=== PATIENT | male | born 1930 | race Caucasian/White ===

== ENCOUNTER 2017-02-15 08:34 | Emergency (ER) | payer MEDICARE, BC ==
[~2017-02-15] VITALS: Ht 167.6 cm; Wt 61.2 kg
[2017-02-15] MEDS ORDERED: ASPI1TAB PO (08:41)
[2017-02-15] MEDS ORDERED: NS 500 ML IV ONE (09:45)
[2017-02-15] MEDS ORDERED: GASTROGRAFIN SOLUTION 30ML (Q9963) PO ONE ×2 (10:15→10:45)
[2017-02-15 10:19] LABS: BASO % 0.3 % (0.0-1.0); EOS # 0.2 K/mm3 (0.0-0.50); EOS % 1.8 % (0.0-3.0); LARGE UNSTAINED CELL # 0.2 K/mm3 (0.0-0.4); LARGE UNSTAINED CELL % 1.7 % (0.0-4.0); LYMPH # 0.9 K/mm3 (1.5-4.5); LYMPH % 8.4 % (24.0-44.0); MEAN CORPUSCULAR HEMOGLOBIN 32.5 pg (27.0-33.0); MEAN CORPUSCULAR HGB CONC 33.8 g/dl (32.0-36.5); MEAN CORPUSCULAR VOLUME 96.1 fl (80.0-96.0); MONO # 0.6 K/mm3 (0.0-0.8); MONO % 5.8 % (0.0-5.0); NEUTROPHILS # 7.7 K/mm3 (1.8-7.7); NEUTROPHILS % 81.9 % (36.0-66.0); PLATELET COUNT, AUTOMATED 249 k/mm3 (150-450); RED CELL DISTRIBUTION WIDTH 12.6 % (11.5-14.5); WHITE BLOOD COUNT 9.4 K/mm3 (4.0-10.0)
[2017-02-15 10:39] LABS: ALBUMIN 3.3 GM/DL (3.2-5.2); ALBUMIN/GLOBULIN RATIO 1.06 (1.00-1.93); BILIRUBIN,DIRECT 0.8 MG/DL (0.0-0.2); BILIRUBIN,TOTAL 1.2 MG/DL (0.2-1.0); CALCIUM LEVEL 10.3 MG/DL (8.8-10.2); CREATININE FOR GFR 1.38 MG/DL (0.70-1.30); GLOMERULAR FILTRATION RATE 51.8 (>35); POTASSIUM SERUM 4.7 MEQ/L (3.5-5.1); TOTAL PROTEIN 6.4 GM/DL (6.4-8.2)
[2017-02-15] MEDS ORDERED: ISOVUE-370 76% 100ML VIAL (Q9967) As Ordered ONE (11:37)
--- NOTE | 2017-02-15 12:11 | REP ---
Clinical: Abdominal mass. Technique: Axial contrast enhanced images from the lung bases to the pubic symphysis using oral and 100 ml Isovue 370 intravenous contrast material with coronal and sagittal re-formations. Comparison: PET-CT dated 06/12/2016. Findings: There is severe ascites throughout the abdomen and pelvis. There is a large soft tissue mass likely representing conglomerate adenopathy which appears to involve the central mesentery encasing the superior mesenteric artery and tributary branches which measures roughly 19 x 15 x 6 cm. No scattered adenopathy throughout the remainder of the abdomen and pelvis and retroperitoneum adjacent to the aorta is also appreciated suggesting lymphoma or extensive metastatic disease. Findings have considerably increased when compared to prior PET-CT. Liver, spleen, pancreas, gallbladder, bilateral adrenal glands and kidneys are relatively normal. Layering sludge within the gallbladder cannot be excluded. 2.4 cm left renal cyst and 2 mm nonobstructing right renal calculus identified. Pelvis demonstrates relatively normal bladder although mild wall thickening along the posterolateral right side of the bladder cannot be excluded. The prostate gland is normal for age. No free air. Atherosclerotic changes of the aorta and vasculature noted without aneurysm or dissection. The bowel pattern is normal. Musculoskeletal structures demonstrate degenerative changes although underlying osseous metastatic disease cannot be excluded. Limited evaluation of the upper abdomen demonstrates ill-defined area of consolidation along the medial right lower lobe. Impression: 1. Severe ascites and large conglomerate adenopathy growing within the mesentery and surrounding the superior mesenteric artery as well as scattered adenopathy throughout the abdomen. Findings suggest lymphoma and/or metastatic disease. 2. Nodular consolidation along the medial right lower lung base. 3. Further chronic changes as described above. Signed by Mckinley Larsen MD 02/15/2017 12:03 P
[2017-02-15 13:22] VITALS: BP 125/65
--- NOTE | 2017-02-15 19:48 | ECGEPIP ---
Stationary ECG Study [facility] - ED Test Date: 2017-02-15 Pat Name: MARILYN VÁZQUEZ Department: Room: - Gender: M [employer] Tender: rn : 1930 Requested By: MARY Hernandez Order Number: [id number] Reading MD: Cortney Espinosa Measurements Intervals [place] Rate: 92 P: 101 WV: 184 QRS: -24 QRSD: 149 T: 103 QT: 380 QTc: 471 Interpretive Statements SINUS RHYTHM LEFT BUNDLE BRANCH BLOCK Electronically Signed On 02-15-2017 19:47:53 EDT by Cortney Espinosa
[2017-02-21 10:05] LABS: CARCINOEMBRYONIC ANTIGEN 2.1 NG/ML (<2.5)
== END 2017-02-15 13:50 | disposition home or self-care (01) ==
LOC: M ED 09:22
DX: R18.8 Other ascites (principal); Z85.51 Personal history of malignant neoplasm of bladder
CPT/HCPCS: 74177; 80048; 80076; 82378; 83605; 83690; 85025; 86301; 93005; 93041; 96360; 99285; Q9963; Q9967

== ENCOUNTER → 2017-02-18 | Outpatient (CLI) | payer MEDICARE, BC ==
[~2017-02-18] MED LIST: ASPI1TAB PO; VITA-122 PO
--- NOTE | 2017-02-18 10:11 | REP ---
Clinical: Malignant ascites. Findings: Liver and visualized pancreas are normal in contour, size, echogenicity without focal hepatic or pancreatic lesions identified. Moderate amount of ascites noted primarily in the right upper quadrant. The gallbladder demonstrates small amount of layering sludge/gravel without wall thickening or sonographic Orta's sign. No biliary ductal dilatation is appreciated and the common bile duct measures 2.7 mm diameter. The right kidney is normal in reniform shape without hydronephrosis and measures 9.6 x 4.6 x 4.9 cm. Impression: Moderate ascites primarily in the right upper quadrant. Normal sonographic appearance to the liver, visualized pancreas, gallbladder and right kidney. Signed by Mckinley Larsen MD 02/18/2017 10:03 A
== END ==
LOC: M RAD 08:17
PROVIDERS: ATTEND Surgery
DX: R18.0 Malignant ascites (principal)

== ENCOUNTER 2017-02-19 10:10 | Inpatient (IN) | payer MEDICARE, BC ==
[~2017-02-19] VITALS: Ht 170.2 cm; Wt 63.2 kg
[~2017-02-19 10:10] MED LIST changes: -VITA-122 PO
[2017-02-19 11:10] VITALS: BP 100/59
[2017-02-19] MEDS ORDERED: VITA-122 PO (11:42)
[2017-02-19 15:18] LABS: SPEC. GRAVITY BODY FLUIDS 1.023 (NOT ESTABLISHED)
[2017-02-19 15:32] LABS: TOTAL PROTEIN, BODY FLUID 3.1 G/DL (NOT ESTABLISHED)
[2017-02-19 15:46] LABS: RBC ASCITES FLUID < 10 (<10mm3 cells/uL); TNC ASCITES FLUID 2710 cells/uL (0-20)
[2017-02-19 15:50] LABS: BF DIFF IF INDICATED? YES (NO)
[2017-02-19] MEDS ORDERED: ACETAMINOPHEN TAB 650MG DOSE (2X325MG) PO PRN (16:15)
--- NOTE | 2017-02-19 16:34 | REP ---
ULTRASOUND-GUIDED PARACENTESIS: The procedure was performed under the direct supervision of Dr. Kirkland. The risks and benefits of the procedure were explained to the patient and informed consent was obtained. The largest pocket of fluid was localized in the right flank using ultrasound guidance. The skin was prepped and draped in a sterile fashion. 1% Lidocaine was used as a local anesthetic. An #8-[place] Islander flszs-kmdb-sens catheter was inserted using trocar technique. 4650 mL of cloudy yellow fluid was withdrawn and sent to the lab. The patient tolerated the procedure well and there were no immediate complications. Reviewed by VALE Membreno 02/19/2017 04:39 PEdited and Signed by Prashanth Kirkland MD 02/19/2017 05:02 P
--- NOTE | 2017-02-19 16:35 | HPE ---
DATE OF ADMISSION: 02/19/2017 REASON FOR ADMISSION: Ascites. HISTORY OF PRESENT ILLNESS: Patient is an 78-year-old male with no past medical history, presented to [facility] as a direct admission from Dr. Frazier office. The patient states that two months ago he started to have decreased appetite, unable to tolerate any food or drink, presented to an emergency room in [place], where he was diagnosed with pneumonia and sent home. A week later, he continued to have abdominal distension and decreased appetite. He went back to his primary care provider, who sent him to the emergency room again. CT scan was done at that time, on 02/15/2017, which showed ascites, adenopathy within the mesentery surrounding superior mesenteric artery and scattered adenopathy suggestive of lymphoma or metastatic disease. He was referred to Dr. Frazier. He went to see him today. After Dr. Frazier reviewed the scans, he sent him to the hospital for a paracentesis, peripherally inserted central catheter (PICC) line placement for total parenteral nutrition (TPN) and oncology consultation. The patient was admitted under hospitalist service. REVIEW OF SYSTEMS: The patient only complains of abdominal distension and poor appetite. Denies any pain anywhere. Denies any chest pain, shortness of breath, nausea, vomiting. Denies any diarrhea or constipation, fevers or chills. Denies any weakness. Denies any recent weight loss. PAST MEDICAL HISTORY: None. PAST SURGICAL HISTORY: The patient had a left leg stent. SOCIAL HISTORY: The patient lives alone. Smokes 5-10 cigarettes a day for the past 75 years. Drinks alcohol occasionally. Has no known relatives. Has no healthcare proxy. No advance directives at this time. MEDICATIONS: Include: - aspirin 81 mg daily - vitamin D daily ALLERGIES: No known drug allergies. FAMILY HISTORY: Noncontributory. PHYSICAL FINDINGS: Blood pressure on admission was 100/59, heart rate 111, respiratory rate 20, temperature 97.9, pulse oximetry 97% on room air. HEENT: Pupils equal, round, reactive to light accommodation. NECK: Supple. No jugular venous distention (JVD). LUNGS: Clear to auscultation bilaterally. ABDOMEN: Distended, nontender. Hypoactive bowel sounds. EXTREMITIES: No clubbing, cyanosis or edema. NEUROLOGIC: Cranial nerves II-XII grossly intact. No focal deficits. LABORATORY FINDINGS: WBC 9.4, hemoglobin 14.2, hematocrit 41.9, platelet count 249. Sodium 142, potassium 4.7, chloride 105, BUN 30.3, creatinine 1.38, lactic acid 1.8, calcium 10.3. IMAGING: As above. ASSESSMENT AND PLAN: 1. Ascites. May be secondary to metastatic disease. Patient was scheduled for a paracentesis today. We will send for ascites panel. Order a cytology. 2. CT scan showed conglomerate adenopathy with findings suggestive of lymphoma. We will order a CT of the neck to rule out any lymph nodes that we would be able to biopsy. 3. Nodular consolidation in the lung base. We will order a CT of the lungs and will continue with malignancy workup. Will order CA-99, CA, LDH and PSA per Dr. Esquivel Recommendation. She has agreed to see patient in consultation. 4. Poor oral intake. We will place a peripherally inserted central catheter (PICC) line and start the patient on total parenteral nutrition (TPN) in the meantime. 5. Deep venous thrombosis (DVT) prophylaxis. Sequential compression devices (SCDs) while in bed.
--- NOTE | 2017-02-19 17:10 | REP ---
Procedure: PICC line insertion with Mirna-Ritconor The procedure was performed under the direct supervision of Dr. Kirkland. The risks and benefits of the procedure were explained to the patient and informed consent was obtained. The right basilic vein was localized using ultrasound guidance. The skin was prepped and draped in a sterile fashion. 2% lidocaine was used as a local anesthetic. Using ultrasound guidance the basilic vein was cannulated and a 0.018 guidewire was inserted and advanced to the SVC using fluoroscopic guidance. The needle was removed and a 5.5 [place]wanan dilator and peel-away sheath was inserted over the guide wire. A 5.5 [place] dual lumen catheter was cut to length of 35 cm. The dilator was removed and the catheter was inserted over the guide wire with the tip ending in the SVC. The peel-away sheath was removed and the catheter was flushed with heparinized saline as per Hospital protocol. The catheter was affixed to the skin and a sterile dressing was applied. The the patient tolerated the procedure well and there were no immediate complications. 0.4 minutes of fluoro time was utilized for this procedure. Reviewed by VALE Membreno 02/19/2017 04:13 PSigned by Prashanth Kirkland MD 02/19/2017 05:00 P
[2017-02-19] MEDS ORDERED: ISOVUE-370 76% 100ML VIAL (Q9967) As Ordered ONE (17:14)
[2017-02-19] MEDS ORDERED: AMINO AC/ELECTROLYTE/DEX/CALC 2,000 ML IV SCH (18:00)
[2017-02-19] MEDS ORDERED: FAT EMULSION IV 20% 500 ML IV SCH (18:00)
[2017-02-19] MEDS: HumaLOG INSULIN (NovoLOG) PER UNIT SC SCH ×2 (18:18→23:49)
[2017-02-19] MEDS: NS 1,000 ML IV SCH (18:50)
[2017-02-19 21:18] LABS: CC BF DIFF EXAM CYTOCENTRIFUGE
[2017-02-19] MEDS ORDERED: GLUCOSE 4 GM CHEW TABLET PO PRN (21:30)
[2017-02-19] MEDS ORDERED: DEXTROSE 50% 50 ML SYRINGE IV PRN (21:30)
[2017-02-19] MEDS ORDERED: GLUCAGON FOR INJ 1 MG VIAL (J1610) SC PRN (21:30)
[2017-02-19 22:00] VITALS: BP 107/59
[2017-02-20] MEDS: SODIUM CHLORIDE 0.9% INJ 10 ML SYR IV SCH ×2 (05:32→18:09)
[2017-02-20] MEDS: NS 1,000 ML IV SCH (05:32)
[2017-02-20] MEDS: HumaLOG INSULIN (NovoLOG) PER UNIT SC SCH ×4 (05:44→23:59)
[2017-02-20 05:54] LABS: BASO % 0.4 % (0.0-1.0); EOS # 0.3 K/mm3 (0.0-0.50); EOS % 3.4 % (0.0-3.0); LARGE UNSTAINED CELL # 0.2 K/mm3 (0.0-0.4); LARGE UNSTAINED CELL % 2.1 % (0.0-4.0); LYMPH # 0.6 K/mm3 (1.5-4.5); MEAN CORPUSCULAR HGB CONC 33.6 g/dl (32.0-36.5); MEAN CORPUSCULAR VOLUME 95.1 fl (80.0-96.0); MONO # 0.8 K/mm3 (0.0-0.8); NEUTROPHILS # 7.7 K/mm3 (1.8-7.7); PLATELET COUNT, AUTOMATED 215 k/mm3 (150-450); RED CELL DISTRIBUTION WIDTH 12.8 % (11.5-14.5); WHITE BLOOD COUNT 9.6 K/mm3 (4.0-10.0)
[2017-02-20 06:00] VITALS: BP 119/62
[2017-02-20 06:14] LABS: ALBUMIN 2.6 GM/DL (3.2-5.2); BILIRUBIN,TOTAL 0.5 MG/DL (0.2-1.0); CALCIUM LEVEL 9.2 MG/DL (8.8-10.2); CREATININE FOR GFR 1.35 MG/DL (0.70-1.30); GLOMERULAR FILTRATION RATE 53.1 (>35); POTASSIUM SERUM 4.3 MEQ/L (3.5-5.1); TOTAL PROTEIN 5.2 GM/DL (6.4-8.2)
--- NOTE | 2017-02-20 08:46 | REP ---
Clinical: Malignancy. Technique: Axial contrast enhanced images from the thoracic inlet to the upper abdomen using 100 ml Isovue 370 intravenous contrast material with coronal and sagittal re-formations. Comparison: 12/18/2012. Findings: The lung rudd demonstrate diffuse chronic interstitial changes and scattered elements of scarring as well as scattered partially calcified pleural plaques suggesting asbestosis. There is an ill-defined area of subpleural density with adjacent scarring along the posterior aspect of the right upper lobe (image 31) which represents change from prior examination and measures roughly 12 mm. There is a small soft tissue mass density along the posteromedial aspect of the right lower lobe which measures up to 2.5 cm and demonstrates adjacent scarring and fibrosis which is essentially unchanged from prior examination. Smaller areas of scattered scarring remains stable as well. Moderate bronchiectasis noted. No pleural effusion. No pneumothorax. A pretracheal lymph node measures 22 mm and is enlarged compared to prior examination along with smaller mediastinal lymph nodes measuring up to approximately 10 mm. Atherosclerotic changes to the thoracic aorta and coronary arteries noted without aortic aneurysm, cardiomegaly or pericardial effusion. Surrounding musculoskeletal structures demonstrate age-related degenerative changes. Limited upper abdomen demonstrates ascites and scattered lymph nodes measuring up to 17 mm in the karen pancreatic space. Impression: 1. 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 2. A solitary enlarged pretracheal mediastinal lymph node measures 22 mm., and a small new irregular subpleural density in the posterior right upper lobe represents change from prior examination. Signed by Mckinley Larsen MD 02/20/2017 08:37 A
--- NOTE | 2017-02-20 09:00 | REP ---
CT NECK WITH CONTRAST: HISTORY: Rule out malignancy. CONTRAST: Isovue 370, 100 mL. The naso-, leonor-, and hypopharynx, larynx and subglottic trachea are normal in appearance. The salivary and thyroid glands are normal. Small lymph nodes less than 1 cm in size are present in the internal jugular chains, posterior triangles and submandibular areas. Atherosclerotic calcification is present at the carotid bifurcations. Degenerative change is present in the cervical spine. A 1.2 cm parenchymal density is present in the right upper lobe. Minimal mucosal thickening is present in the left mastoid air cells. The visualized sinuses are clear. IMPRESSION: 1. There is no neck mass or adenopathy. 2. There is a 1.2 cm parenchymal density in the right upper lobe. Please refer to CT of the chest. Signed by Willie Olivas MD 02/20/2017 09:02 A
--- NOTE | 2017-02-20 13:10 | CR ---
DATE OF CONSULTATION: 02/19/[address] Steen requested medical oncology consult for management recommendations for suspected malignant ascites and mesenteric adenopathy in an 86-year-old man with a personal history of bladder cancer. 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 He has a personal history of bladder cancer status post Bacillus Calmette-Edgar (BCG) in 2010 or 2011 with no recurrence, transitional cell, papillary type, followed by Dr. Díaz. His last cystoscopy was 2012. There is a little murkiness in the history but apparently last May, the patient presented with abdominal distension, was found to have mesenteric adenopathy seen on a positron emission tomography (PET) CT at [facility] 06/12/2017, which demonstrated mildly hypermetabolic nodular opacity in the right upper lobe, SUV 2.9, a right lower lobe infiltrate-like opacity with low SUV 2.1, no mediastinal hilar or other lung parenchymal disease seen, but in the abdomen and pelvis, there was bulky hypermetabolic lymphadenopathy involving small bowel mesentery in the left central abdomen, maximum SUV 9.9, multiple nodes, largest 3.7 x 2.3 cm. Of note, no retroperitoneal adenopathy. No pelvic adenopathy and no other abnormal hypermetabolic uptake. He was apparently lost to followup for while, reporting now in the last six weeks gradual abdominal distension. He was scheduled to see Dr. Summers of [facility] oncology practice tomorrow; on 02/13/2017, he saw Dr. Frazier apparently for workup of his lymph nodes, but on examination was found to have massive ascites and was referred to the emergency room. On admission here. 02/15/2017, there is severe ascites throughout the abdomen and pelvis with a large soft tissue mass, likely conglomerate adenopathy involving central mesentery encasing the superior mesenteric artery and tributary branches, measuring up to 19 x 15 x 6 cm. In addition, though the text of the report says "no," it appears there was observed scattered adenopathy throughout the remainder of the abdomen, pelvis and retroperitoneum, including para-aortic suggestive of lymphoma or extensive metastatic disease. The major organs in the abdomen and pelvis were relatively normal. Chest CT on this admission has been performed, not yet read. On cursory review of the images, there appears to be a right lower lobe pleural-based nodular density several centimeters in size. No bulky mediastinal adenopathy or bulky hilar adenopathy. Formal read is to follow. Labs on this admission notable for normal WBC, hemoglobin 14, hematocrit 42, platelets 249, mild neutrophilia 82%. No obvious lymphocytosis. Mild relative hypercalcemia with calcium 10.3, albumin 3.3, but very high lactate dehydrogenase at 761, BUN/creatinine 30 and 1.38 respectively, alkaline phosphatase 139, AST/ALT 83 and 81 respectively. CEA, CA19-9 and PSA are pending. The patient underwent diagnostic and therapeutic paracentesis just prior to my visiting him in his room. The ascites was yellow, turbid, with specific gravity 1023, RBCs present. No pathology or cytology yet available. PAST MEDICAL HISTORY: 1. Allergic rhinitis. 2. Malignant transitional cell of the bladder, early stage, status post Bacillus Calmette-Edgar (BCG) therapy in 2011. No evidence of disease (FAMILIA) since. 3. Cardiomyopathy, idiopathic, apparently resolved with most recent echocardiogram 2012 showing mild left ventricular hypertrophy and normal systolic function. 4. Nicotine dependence. Patient, however, reports he does not inhale. 5. Osteoarthritis. 6. Peripheral vascular disease status post left femoral stent. 7. Colon polyps with tubular adenoma in 12/2015. 8. Hypercholesterolemia. 9. Sensory neural hearing loss, moderate. 10. Solitary pulmonary nodules seen in 04/2016, in the 05/2016 PET scan and possibly in the current chest CT. 11. History of ureteral stone removal 2012. 12. History of vitamin D deficiency. CURRENT MEDICATIONS: - insulin sliding scale - acetaminophen as needed - prophylactic heparin subcutaneously ALLERGIES; No known drug allergies. FAMILY HISTORY: Was not elicited. SOCIAL HISTORY: The patient has a 75-year one-half to one-quarter pack per day history and he reports not inhaling. He drinks alcohol rarely. REVIEW OF SYSTEMS: Focused. The patient denies fevers, chills, sweats. He acknowledges a 10-20 pound weight loss in the last several months, early satiety. It is unclear whether he had true dysphagia to solids or early satiety. He denies vomiting or nausea, abdominal pain per se. Had some slight shortness of breath as his ascites worsened. Denies celsa chest pain, palpitations, leg cramping, swelling, orthopnea or new musculoskeletal pain. Remainder of review of systems is negative. PHYSICAL EXAMINATION: VITAL SIGNS: As of 11:00 a.m., temperature 97.9, blood pressure 100/59, heart rate 111, O2 sat 97 on room air, heart rate 111. The patient is a slender, somewhat wiry older gentleman wearing a hearing aid, little hard of hearing, reclining in the bed, accompanied by a friend. He is very pleasant and well groomed appearing. Dentures in place. HEENT: No scleral icterus. Oropharynx: Moist, pink mucous membranes. RESPIRATORY: Clear lungs to auscultation bilaterally anterior and posteriorly. No wheezes, no rales. CARDIAC: S1-S2. Regular rate and rhythm. No murmurs or gallops. ABDOMEN: Mild, soft, distension, nontender. Some redundant skin folds. A slight blebbing out of the right lower lateral quadrant where a bandage is over the paracentesis site. Normal bowel sounds. Soft, mild, shifting dullness. Nontender. No palpable obvious mass. Some firm, nontender fullness in the central abdomen. EXTREMITIES: No edema. LYMPH NODES: No palpable submandibular, cervical, supraclavicular, axillary or inguinal adenopathy bilaterally. IMPRESSION: Molina Silver is an 86-year-old man with a personal history of what sounds like superficial/localized bladder carcinoma status post Bacillus Calmette-Edgar (BCG) treatment several years ago with no evidence of recurrence, now presenting with progressed mesenteric adenopathy and possible evidence of diffuse abdominal and retroperitoneal adenopathy and ascites suspicious for lymphoma, particularly in the setting of severely elevated LDH in the 700s. This is suspicious for an aggressive lymphoma, such as diffuse large B-cell lymphoma. The patient has a solitary B symptom of weight loss in the setting of early satiety, likely secondary to ascites. Clinically, he has stage II disease, if this is lymphoma. There is a solitary pleural based nodules seen on the right lower lobe on chest CT by my reading. There may be additional nodules. This is less suspicious for lymphoma then for a primary lung malignancy, a second, synchronous neoplasm. His Eastern Cooperative Oncology Group (ECOG) performance status is 2-3, though he reports feeling immediately better now that he has undergone paracentesis. PLAN: 1. Will follow up cytology from the paracentesis. If this is indeterminate or suggests lymphoma without further differentiation, an excisional biopsy will need to be done for definitive diagnosis. The issue is whether this is an indolent or an aggressive, B-cell lymphoma. 2. A positron emission tomography (PET) scan would be optimal to assess the lung findings in addition to the abdomen and pelvis, though the abdomen findings were hypermetabolic on PET in 05/2016. In a patient like Mr. Silver, older, living alone in a fairly remote area, treatment for a possible lymphoma will need to be carefully coordinated. Systemic treatment with an R-CHOP (rituximab, cyclophosphamide, doxorubicin, vincristine, prednisone) type regimen is most common. This is chemotherapy given on a single day, once every 21 days, with oral prednisone for five days. Our nurse navigator, Erum Gonzalez can help coordinate an early appointment in the medical oncology office. Erum's number is . I will continue to follow intermittently during this admission as results emerge. I spoke with Mr. Silver and his friend quite extensively about the concern for lymphoma, how that would be diagnosed, the several day time interval to obtain cytologic diagnosis and the possible need for additional biopsies. I also cautioned him that should he have recurrence of the abdominal fluid, depending on how rapidly, he might need palliative maneuver, such as placement of a PleurX catheter until treatment can be underway. I explained the typical treatment for lymphoma involves chemotherapy given in the outpatient setting. Thank you for this consult. I will follow intermittently. BERNICE
[2017-02-20 14:00] VITALS: BP 130/66
--- NOTE | 2017-02-20 15:10 | IPNPDOC ---
Subjective Date Seen The patient was seen on 02/20/17. Subjective Chief Complaint/HPI The patient is a 86-year-old male admitted with a reason for visit of Ascites. Events since last encounter pt seen and examined, states he feels better since admission, states he tolerated diet ate, eggs this morning. abd pain resolved, no nausea, he was ambulating the halls Objective Physical Examination General Exam: Positive: Alert, Cooperative, No Acute Distress Eye Exam: Positive: Conjunctiva & lids normal, EOMI, PERRLA, Negative: Sclera icteric Chest Exam: Positive: Clear to auscultation, Normal air movement Heart Exam: Positive: Rate Normal, Regular Rhythm Abdomen Exam: Positive: Normal bowel sounds, Other (ascities), Soft Extremity Exam: Positive: Normal pulses, Negative: Clubbing, Cyanosis, Edema Neuro Exam: Positive: Cranial Nerves 3-12 NL, Normal Gait, Normal Speech, Reflexes 2+ Assessment /Plan Problems (1) Abdominal mass Status: Acute Problem Text: * mesenteric adenopathy seen on abd CT * 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 * Dr Esquivel is consulted, biopsy was recommended * it was ordered today to be done by radiology (2) Lymphadenopathy Status: Acute Problem Text: * mesenteric adenopathy, mediastinal lymph node 22mm and upper lobe density * await biopsy results * 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, 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 (3) Ascites Status: Acute Problem Text: * s/p paracentesis 02/19 4650cc removed * cytology is pending * await final results (4) Early satiety Status: Acute Problem Text: * PICC line was placed for TPN but pt states he has been tolerating diet * will d/c fluids * order calorie count with meals * if he is able to tolerate more than 75% of his meals will d/c TPN (5) PVD (peripheral vascular disease) Status: Chronic Response to Treatment: Stable Problem Text: * s/p left femoral stent Plan/VTE VTE Prophylaxis Ordered?: Yes VS, I&O, 24H, [facility] Vital Signs/I&O Vital Signs Date Time Temp Pulse Resp B/P Pulse Ox O2 Delivery O2 Flow Rate FiO2 02/20/17 06:00 98.1 85 19 119/62 95 Room Air I&O- Last 24 Hours up to 6 AM 02/20/17 06:00 Intake Total 960 ml Output Total 425 ml Balance 535 ml Laboratory Data 24H LABS Laboratory Tests 2 02/19/17 16:12: Lactate Dehydrogenase 761H 02/19/17 16:53: Bedside Glucose (Misc Panel) 129H 02/19/17 18:14: Bedside Glucose (Misc Panel) 113H 02/19/17 23:25: Bedside Glucose (Misc Panel) 144H 02/20/17 05:31: Blood Urea Nitrogen 32H, Creatinine 1.35H, Sodium Level 138, Potassium Level 4.3 , Chloride Level 103, Carbon Dioxide Level 26, Calcium Level 9.2, Aspartate Amino Transf (AST/SGOT) 60H, Alanine Aminotransferase (ALT/SGPT) 62, Alkaline Phosphatase 121H, Total Bilirubin 0.5, Total Protein 5.2L, Albumin 2.6L, Albumin /Globulin Ratio 1.00, Anion Gap 9, White Blood Count 9.6, Red Blood Count 4.02L , Hemoglobin 12.9L, Hematocrit 38.2L, Mean Corpuscular Volume 95.1, Mean Corpuscular Hemoglobin 32.0, Mean Corpuscular Hemoglobin Concent 33.6, Red Cell Distribution Width 12.8, Platelet Count 215, Neutrophils (%) (Auto) 80.0H, Lymphocytes (%) (Auto) 6.0L, Monocytes (%) (Auto) 8.0H, Eosinophils (%) (Auto) 3.4H, Basophils (%) (Auto) 0.4, Neutrophils # (Auto) 7.7, Lymphocytes # (Auto) 0.6L, Monocytes # (Auto) 0.8, Eosinophils # (Auto) 0.3, Basophils # (Auto) 0.0, Glomerular Filtration Rate 53.1, Large Unclassified Cells # 0.2, Large Unclassified Cells % 2.1, Magnesium Level 2.0 02/20/17 05:37: Bedside Glucose (Misc Panel) 108 CBC/BMP Laboratory Tests 02/20/17 05:31 Calcium Level 9.2, Aspartate Amino Transf (AST/SGOT) 60 H, Alanine Aminotransferase (ALT/SGPT) 62, Alkaline Phosphatase 121 H, Total Bilirubin 0.5 , Total Protein 5.2 L, Albumin 2.6 L, Red Blood Count 4.02 L, Mean Corpuscular Volume 95.1, Mean Corpuscular Hemoglobin 32.0, Mean Corpuscular Hemoglobin Concent 33.6, Red Cell Distribution Width 12.8, Neutrophils (%) (Auto) 80.0 H, Lymphocytes (%) (Auto) 6.0 L, Monocytes (%) (Auto) 8.0 H, Eosinophils (%) (Auto ) 3.4 H, Basophils (%) (Auto) 0.4, Neutrophils # (Auto) 7.7, Lymphocytes # (Auto ) 0.6 L, Monocytes # (Auto) 0.8, Eosinophils # (Auto) 0.3, Basophils # (Auto) 0.0 Microbiology Microbiology 02/19/17 Acid Fast Stain, Received Pending 02/19/17 Mycobacterial Culture, Received Pending 02/19/17 Fungal Smear, Received Pending 02/19/17 Fungal Culture, Received Pending 02/19/17 Gram Stain - Final, Resulted 02/19/17 Body Fluid Culture, Resulted Pending KENNA COX DO Feb 20, 2017 15:10
--- NOTE | 2017-02-20 15:50 | REP ---
Clinical: Ascites. Technique: Real time guerrero scale ultrasound examination using curved array transducer. Findings: Survey evaluation of the abdomen and pelvis demonstrates a mild to moderate amount of ascites. Large nodular mass in the central mid abdomen extending through the pelvis measuring 18.8 x 13 x 8.2 cm. Impression: Mild to moderate amount of ascites. Large nodular soft tissue mass in the mid to lower abdomen/pelvis. Signed by Mckinley Larsen MD 02/20/2017 03:41 P
[2017-02-20] MEDS ORDERED: FAT EMULSION IV 20% 500 ML IV SCH (18:00)
[2017-02-20] MEDS ORDERED: AMINO AC/ELECTROLYTE/DEX/CALC 2,000 ML IV SCH (18:00)
[2017-02-20 22:00] VITALS: BP 121/60
[2017-02-20] MEDS: MORPHINE 2 MG/ML 1ML SYRINGE IV PRN (23:59)
[2017-02-21] VITALS (8 sets, daily range): BP systolic 105–130; BP diastolic 57–76
[2017-02-21] MEDS: SODIUM CHLORIDE 0.9% INJ 10 ML SYR IV SCH ×2 (05:02→18:28)
[2017-02-21] MEDS: HumaLOG INSULIN (NovoLOG) PER UNIT SC SCH ×4 (05:40→23:54)
[2017-02-21 06:03] LABS: BASO % 0.2 % (0.0-1.0); EOS # 0.4 K/mm3 (0.0-0.50); LARGE UNSTAINED CELL # 0.2 K/mm3 (0.0-0.4); LYMPH # 0.8 K/mm3 (1.5-4.5); LYMPH % 4.8 % (24.0-44.0); MEAN CORPUSCULAR HEMOGLOBIN 32.6 pg (27.0-33.0); MEAN CORPUSCULAR HGB CONC 34.3 g/dl (32.0-36.5); MONO % 8.6 % (0.0-5.0); NEUTROPHILS # 9.5 K/mm3 (1.8-7.7); NEUTROPHILS % 81.5 % (36.0-66.0); PLATELET COUNT, AUTOMATED 200 k/mm3 (150-450); WHITE BLOOD COUNT 11.7 K/mm3 (4.0-10.0)
[2017-02-21 06:10] LABS: ALBUMIN 2.5 GM/DL (3.2-5.2); ALKALINE PHOSPHATASE 110 U/L (45-117); ALT/SGPT 54 U/L (12-78); ANION GAP 9 MEQ/L (8-16); AST/SGOT 62 U/L (15-37); BILIRUBIN,TOTAL 0.4 MG/DL (0.2-1.0); BLOOD UREA NITROGEN 30 MG/DL (7-18); CALCIUM LEVEL 9.2 MG/DL (8.8-10.2); CARBON DIOXIDE LEVEL 25 MEQ/L (21-32); CHLORIDE LEVEL 102 MEQ/L (98-107); CREATININE FOR GFR 1.04 MG/DL (0.70-1.30); GLOMERULAR FILTRATION RATE > 60.0 (>35); GLUCOSE, FASTING 107 MG/DL (83-110); MAGNESIUM LEVEL 1.8 MG/DL (1.8-2.4); POTASSIUM SERUM 4.4 MEQ/L (3.5-5.1); SODIUM LEVEL 136 MEQ/L (136-145)
[2017-02-21 10:37] LABS: CARCINOEMBRYONIC ANTIGEN 2.5 NG/ML (<2.5)
[2017-02-21] MEDS ORDERED: SODIUM BICARBONATE 8.4% INJ 50MEQ 50 ML VIAL As Ordered ONE (11:17)
[2017-02-21] MEDS ORDERED: LIDOCAINE W/EPINEPHRINE 1% 20ML VIAL As Ordered ONE (11:17)
[2017-02-21] MEDS ORDERED: LIDOCAINE 2% MDV 20 ML VIAL As Ordered ONE (11:17)
--- NOTE | 2017-02-21 12:30 | IPNPDOC ---
Subjective Date Seen The patient was seen on 02/21/17. Subjective Chief Complaint/HPI The patient is a 86-year-old male admitted with a reason for visit of Ascites. Events since last encounter pt seen and examined, went down for paracentesis and biopsy today, no overnight events Objective Physical Examination General Exam: Positive: Alert, Cooperative, No Acute Distress Eye Exam: Positive: Conjunctiva & lids normal, EOMI, PERRLA, Negative: Sclera icteric Chest Exam: Positive: Clear to auscultation, Normal air movement Heart Exam: Positive: Rate Normal, Regular Rhythm Abdomen Exam: Positive: Normal bowel sounds, Other (ascities), Soft Extremity Exam: Positive: Normal pulses, Negative: Clubbing, Cyanosis, Edema Neuro Exam: Positive: Cranial Nerves 3-12 NL, Normal Gait, Normal Speech, Reflexes 2+ Assessment /Plan Problems (1) Abdominal mass Status: Acute Problem Text: * mesenteric adenopathy seen on abd CT * 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 * scheduled for biopsy today (2) Lymphadenopathy Status: Acute Problem Text: * mesenteric adenopathy, mediastinal lymph node 22mm and upper lobe density * await biopsy results * 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, 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 (3) Ascites Status: Acute Problem Text: * s/p paracentesis 02/19 4650cc removed * cytology showed no malignancy identified * biopsy path is pending (4) Early satiety Status: Acute Problem Text: * PICC line was placed for TPN but pt states he has been tolerating diet * will continue diet (5) PVD (peripheral vascular disease) Status: Chronic Response to Treatment: Stable Problem Text: * s/p left femoral stent Plan/VTE VTE Prophylaxis Ordered?: Yes VS, I&O, 24H, [facility] Vital Signs/I&O Vital Signs Date Time Temp Pulse Resp B/P Pulse Ox O2 Delivery O2 Flow Rate FiO2 02/21/17 06:00 98.7 89 18 123/66 94 Room Air I&O- Last 24 Hours up to 6 AM 02/21/17 05:59 Intake Total 4350 ml Output Total 1325 ml Balance 3025 ml Laboratory Data 24H LABS Laboratory Tests 2 02/20/17 16:44: Bedside Glucose (Misc Panel) 122H 02/21/17 05:27: Blood Urea Nitrogen 30H, Creatinine 1.04, Sodium Level 136, Potassium Level 4.4 , Chloride Level 102, Carbon Dioxide Level 25, Calcium Level 9.2, Aspartate Amino Transf (AST/SGOT) 62H, Alanine Aminotransferase (ALT/SGPT) 54, Alkaline Phosphatase 110, Total Bilirubin 0.4, Total Protein 5.0L, Albumin 2.5L, Albumin/ Globulin Ratio 1.00, Anion Gap 9, White Blood Count 11.7H, Red Blood Count 4.03L , Hemoglobin 13.1L, Hematocrit 38.3L, Mean Corpuscular Volume 95.0, Mean Corpuscular Hemoglobin 32.6, Mean Corpuscular Hemoglobin Concent 34.3, Red Cell Distribution Width 13.0, Platelet Count 200, Neutrophils (%) (Auto) 81.5H, Lymphocytes (%) (Auto) 4.8L, Monocytes (%) (Auto) 8.6H, Eosinophils (%) (Auto) 3.0, Basophils (%) (Auto) 0.2, Neutrophils # (Auto) 9.5H, Lymphocytes # (Auto) 0.8L, Monocytes # (Auto) 1.0H, Eosinophils # (Auto) 0.4, Basophils # (Auto) 0.0 , Glomerular Filtration Rate > 60.0, Large Unclassified Cells # 0.2, Large Unclassified Cells % 2.0, Magnesium Level 1.8 CBC/BMP Laboratory Tests 02/21/17 05:27 Calcium Level 9.2, Aspartate Amino Transf (AST/SGOT) 62 H, Alanine Aminotransferase (ALT/SGPT) 54, Alkaline Phosphatase 110, Total Bilirubin 0.4, Total Protein 5.0 L, Albumin 2.5 L, Red Blood Count 4.03 L, Mean Corpuscular Volume 95.0, Mean Corpuscular Hemoglobin 32.6, Mean Corpuscular Hemoglobin Concent 34.3, Red Cell Distribution Width 13.0, Neutrophils (%) (Auto) 81.5 H, Lymphocytes (%) (Auto) 4.8 L, Monocytes (%) (Auto) 8.6 H, Eosinophils (%) (Auto ) 3.0, Basophils (%) (Auto) 0.2, Neutrophils # (Auto) 9.5 H, Lymphocytes # (Auto ) 0.8 L, Monocytes # (Auto) 1.0 H, Eosinophils # (Auto) 0.4, Basophils # (Auto) 0.0 Microbiology Microbiology 02/19/17 Acid Fast Stain, Received Pending 3/29/17 Mycobacterial Culture, Received Pending 02/19/17 Fungal Smear, Received Pending 02/19/17 Fungal Culture, Received Pending 02/19/17 Gram Stain - Final, Complete 02/19/17 Body Fluid Culture - Final, Complete KENNA COX DO Feb 21, 2017 12:30
[2017-02-21] MEDS: MORPHINE 2 MG/ML 1ML SYRINGE IV PRN ×2 (13:32→20:44)
--- NOTE | 2017-02-21 14:44 | REPKIM ---
CLINICAL HISTORY: Abdominal/mesenteric abnormal mass and ascites. The referring service has asked a diagnostic mesenteric mass biopsy. PROCEDURE PERFORMED: 1. Percutaneous abdominal/mesenteric mass biopsy 2. Paracentesis INTERVENTIONALIST: Dr. Tasha Nieves CONSENT: The risks, benefits and alternatives to the procedure were explained to the patient and informed written consent was obtained and witnessed. MEDICATIONS: Local Lidocaine EBL: 30 mL PROCEDURE/FINDINGS: The patient was placed in the supine position. Time out procedure was performed. Ultrasound was used to locate the largest pocket of left sided peritoneal fluid. The patients left abdomen was prepped and draped in the usual sterile fashion. Then an 8-Fr centesis catheter was introduced into the peritoneal fluid pocket, after infiltration of the skin and deep tissues with local anesthetic. A total of approximately 2300 turbid blood containing ascitic fluid was removed. The catheter was removed, and manual pressure was applied to the puncture site, followed by application of a sterile dressing. Ultrasound of the abdomen was performed. The mid to left abdomen was prepped and draped in the usual sterile fashion. Ultrasound localized a large mesenteric mass. Using ultrasound guidance, a 17-gauge introducer needle was advanced to the targeted mesenteric mass, after infiltration of the skin and deep tissues with local anesthetic. Then using coaxial technique, five core samples were obtained using an 18-gauge biopsy device. The core specimens sent to pathology. Hemostasis was then obtained using lidocaine with epi via the introducer needle. The introducer needle was then removed. Direct manual pressure was applied over the skin entrance site. A sterile dressing was applied. This procedure was performed using ultrasound. The patient tolerated the procedure well with no immediate complications. Dr. Nieves was present. IMPRESSION: Successful percutaneous core biopsy of the mid to left abdominal/ mesenteric mass as described above. Paracentesis also performed. cc: DO BERNICE Ann
[2017-02-21] MEDS ORDERED: FAT EMULSION IV 20% 500 ML IV SCH (18:00)
[2017-02-21] MEDS ORDERED: MULTIVITAMIN -ADULT INJECTION 10 ML, CR/CU/SE/MN/ZN INJ 1 ML in AMINO AC/ELECTROLYTE/DE... IV SCH (18:00)
[2017-02-22] MEDS: HumaLOG INSULIN (NovoLOG) PER UNIT SC SCH ×4 (05:39→23:50)
[2017-02-22] MEDS: SODIUM CHLORIDE 0.9% INJ 10 ML SYR IV SCH ×2 (05:39→17:47)
[2017-02-22 05:57] LABS: BASO % 0.3 % (0.0-1.0); EOS # 0.2 K/mm3 (0.0-0.50); EOS % 1.8 % (0.0-3.0); LARGE UNSTAINED CELL # 0.3 K/mm3 (0.0-0.4); LARGE UNSTAINED CELL % 2.7 % (0.0-4.0); LYMPH # 0.5 K/mm3 (1.5-4.5); LYMPH % 3.9 % (24.0-44.0); MEAN CORPUSCULAR HEMOGLOBIN 33.2 pg (27.0-33.0); MEAN CORPUSCULAR HGB CONC 35.5 g/dl (32.0-36.5); MEAN CORPUSCULAR VOLUME 93.5 fl (80.0-96.0); MONO % 7.9 % (0.0-5.0); NEUTROPHILS % 83.3 % (36.0-66.0); PLATELET COUNT, AUTOMATED 171 k/mm3 (150-450); RED CELL DISTRIBUTION WIDTH 12.7 % (11.5-14.5)
[2017-02-22 06:00] VITALS: BP 110/55
[2017-02-22 06:26] LABS: ALBUMIN 2.3 GM/DL (3.2-5.2); ALKALINE PHOSPHATASE 117 U/L (45-117); ALT/SGPT 106 U/L (12-78); ANION GAP 10 MEQ/L (8-16); AST/SGOT 130 U/L (15-37); BILIRUBIN,TOTAL 0.8 MG/DL (0.2-1.0); BLOOD UREA NITROGEN 32 MG/DL (7-18); CALCIUM LEVEL 9.1 MG/DL (8.8-10.2); CARBON DIOXIDE LEVEL 24 MEQ/L (21-32); CHLORIDE LEVEL 102 MEQ/L (98-107); CREATININE FOR GFR 1.04 MG/DL (0.70-1.30); GLOMERULAR FILTRATION RATE > 60.0 (>35); GLUCOSE, FASTING 115 MG/DL (83-110); POTASSIUM SERUM 4.6 MEQ/L (3.5-5.1); SODIUM LEVEL 136 MEQ/L (136-145); TOTAL PROTEIN 4.9 GM/DL (6.4-8.2)
[2017-02-22 06:27] LABS: ALBUMIN/GLOBULIN RATIO 0.88 (1.00-1.93); MAGNESIUM LEVEL 1.8 MG/DL (1.8-2.4)
[2017-02-22] MEDS ORDERED: ONDANSETRON 4MG/2ML VIAL (J2405) IV PRN (11:45)
[2017-02-22 13:30] VITALS: BP 122/68
--- NOTE | 2017-02-22 14:29 | IPNPDOC ---
Subjective Date Seen The patient was seen on 02/22/17. Subjective Chief Complaint/HPI The patient is a 86-year-old male admitted with a reason for visit of Ascites. Events since last encounter pt seen and examined, feels nauseated today Objective Physical Examination General Exam: Positive: Alert, Cooperative, No Acute Distress Eye Exam: Positive: Conjunctiva & lids normal, EOMI, PERRLA, Negative: Sclera icteric Chest Exam: Positive: Clear to auscultation, Normal air movement Heart Exam: Positive: Rate Normal, Regular Rhythm Abdomen Exam: Positive: Normal bowel sounds, Other (ascities), Soft Extremity Exam: Positive: Normal pulses, Negative: Clubbing, Cyanosis, Edema Neuro Exam: Positive: Cranial Nerves 3-12 NL, Normal Gait, Normal Speech, Reflexes 2+ Assessment /Plan Problems (1) Abdominal mass Status: Acute Problem Text: * mesenteric adenopathy seen on abd CT * 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 * scheduled for biopsy 02/21 * await results (2) Lymphadenopathy Status: Acute Problem Text: * mesenteric adenopathy, mediastinal lymph node 22mm and upper lobe density * await biopsy results * 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, 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 (3) Ascites Status: Acute Problem Text: * s/p paracentesis 02/19 4650cc removed * cytology showed no malignancy identified * biopsy path is pending (4) Early satiety Status: Acute Problem Text: * PICC line was placed for TPN but pt states he has been tolerating diet * will continue diet (5) PVD (peripheral vascular disease) Status: Chronic Response to Treatment: Stable Problem Text: * s/p left femoral stent (6) Nausea Status: Acute Problem Text: start zofran 4mg Q4 hours Plan/VTE VTE Prophylaxis Ordered?: Yes VS, I&O, 24H, Fishbone Vital Signs/I&O Vital Signs Date Time Temp Pulse Resp B/P Pulse Ox O2 Delivery O2 Flow Rate FiO2 02/22/17 13:30 98.4 94 19 122/68 94 Room Air I&O- Last 24 Hours up to 6 AM 02/22/17 06:00 Intake Total 2220 ml Output Total 2875 ml Balance -655 ml Laboratory Data 24H LABS Laboratory Tests 2 02/21/17 16:33: Bedside Glucose (Misc Panel) 150H 02/21/17 23:29: Bedside Glucose (Misc Panel) 95 02/22/17 05:35: Bedside Glucose (Misc Panel) 137H 02/22/17 05:38: Blood Urea Nitrogen 32H, Creatinine 1.04, Sodium Level 136, Potassium Level 4.6 , Chloride Level 102, Carbon Dioxide Level 24, Calcium Level 9.1, Aspartate Amino Transf (AST/SGOT) 130H, Alanine Aminotransferase (ALT/SGPT) 106H, Alkaline Phosphatase 117, Total Bilirubin 0.8#, Total Protein 4.9L, Albumin 2.3L , Albumin/Globulin Ratio 0.88L, Anion Gap 10, White Blood Count 12.0H, Red Blood Count 4.16L, Hemoglobin 13.8L, Hematocrit 38.9L, Mean Corpuscular Volume 93.5, Mean Corpuscular Hemoglobin 33.2H, Mean Corpuscular Hemoglobin Concent 35.5, Red Cell Distribution Width 12.7, Platelet Count 171, Neutrophils (%) ( Auto) 83.3H, Lymphocytes (%) (Auto) 3.9L, Monocytes (%) (Auto) 7.9H, Eosinophils (%) (Auto) 1.8, Basophils (%) (Auto) 0.3, Neutrophils # (Auto) 10.0H , Lymphocytes # (Auto) 0.5L, Monocytes # (Auto) 1.0H, Eosinophils # (Auto) 0.2, Basophils # (Auto) 0.0, Glomerular Filtration Rate > 60.0, Large Unclassified Cells # 0.3, Large Unclassified Cells % 2.7, Magnesium Level 1.8 CBC/BMP Laboratory Tests 02/22/17 05:38 Calcium Level 9.1, Aspartate Amino Transf (AST/SGOT) 130 H, Alanine Aminotransferase (ALT/SGPT) 106 H, Alkaline Phosphatase 117, Total Bilirubin 0.8 #, Total Protein 4.9 L, Albumin 2.3 L, Red Blood Count 4.16 L, Mean Corpuscular Volume 93.5, Mean Corpuscular Hemoglobin 33.2 H, Mean Corpuscular Hemoglobin Concent 35.5, Red Cell Distribution Width 12.7, Neutrophils (%) (Auto ) 83.3 H, Lymphocytes (%) (Auto) 3.9 L, Monocytes (%) (Auto) 7.9 H, Eosinophils (%) (Auto) 1.8, Basophils (%) (Auto) 0.3, Neutrophils # (Auto) 10.0 H, Lymphocytes # (Auto) 0.5 L, Monocytes # (Auto) 1.0 H, Eosinophils # (Auto) 0.2, Basophils # (Auto) 0.0 Microbiology Microbiology 02/19/17 Acid Fast Stain, Received Pending 02/19/17 Mycobacterial Culture, Received Pending 02/19/17 Fungal Smear, Received Pending 02/19/17 Fungal Culture, Received Pending 02/19/17 Gram Stain - Final, Complete 02/19/17 Body Fluid Culture - Final, Complete KENNA COX DO Feb 22, 2017 14:29
[2017-02-22] MEDS: SODIUM CHLORIDE 0.9% INJ 10 ML SYR IV PRN (15:14)
[2017-02-22] MEDS: MORPHINE 2 MG/ML 1ML SYRINGE IV PRN (15:14)
[2017-02-22] MEDS ORDERED: AMINO AC/ELECTROLYTE/DEX/CALC 2,000 ML IV SCH (18:00)
[2017-02-22] MEDS ORDERED: FAT EMULSION IV 20% 500 ML IV SCH (18:00)
[2017-02-22 22:00] VITALS: BP 102/60
[2017-02-23 06:00] VITALS: BP 114/58
[2017-02-23] MEDS: SODIUM CHLORIDE 0.9% INJ 10 ML SYR IV SCH ×2 (06:00→18:29)
[2017-02-23] MEDS: HumaLOG INSULIN (NovoLOG) PER UNIT SC SCH ×3 (06:25→23:55)
[2017-02-23 06:36] LABS: BASO % 0.4 % (0.0-1.0); EOS # 0.3 K/mm3 (0.0-0.50); EOS % 2.9 % (0.0-3.0); LARGE UNSTAINED CELL # 0.3 K/mm3 (0.0-0.4); LARGE UNSTAINED CELL % 2.4 % (0.0-4.0); LYMPH # 0.8 K/mm3 (1.5-4.5); LYMPH % 4.5 % (24.0-44.0); MEAN CORPUSCULAR HEMOGLOBIN 33.2 pg (27.0-33.0); MEAN CORPUSCULAR HGB CONC 34.4 g/dl (32.0-36.5); MEAN CORPUSCULAR VOLUME 96.6 fl (80.0-96.0); MONO # 1.1 K/mm3 (0.0-0.8); MONO % 9.1 % (0.0-5.0); NEUTROPHILS # 9.5 K/mm3 (1.8-7.7); NEUTROPHILS % 80.8 % (36.0-66.0); PLATELET COUNT, AUTOMATED 170 k/mm3 (150-450); WHITE BLOOD COUNT 11.8 K/mm3 (4.0-10.0)
[2017-02-23 06:51] LABS: ALBUMIN/GLOBULIN RATIO 0.63 (1.00-1.93); ALKALINE PHOSPHATASE 115 U/L (45-117); ALT/SGPT 119 U/L (12-78); ANION GAP 8 MEQ/L (8-16); AST/SGOT 115 U/L (15-37); BILIRUBIN,TOTAL 1.1 MG/DL (0.2-1.0); BLOOD UREA NITROGEN 36 MG/DL (7-18); CALCIUM LEVEL 9.4 MG/DL (8.8-10.2); CARBON DIOXIDE LEVEL 23 MEQ/L (21-32); CHLORIDE LEVEL 100 MEQ/L (98-107); CREATININE FOR GFR 1.06 MG/DL (0.70-1.30); GLOMERULAR FILTRATION RATE > 60.0 (>35); GLUCOSE, FASTING 210 MG/DL (83-110); MAGNESIUM LEVEL 1.9 MG/DL (1.8-2.4); POTASSIUM SERUM 4.8 MEQ/L (3.5-5.1); SODIUM LEVEL 131 MEQ/L (136-145); TOTAL PROTEIN 5.2 GM/DL (6.4-8.2)
--- NOTE | 2017-02-23 10:53 | REP ---
Clinical: Shortness of breath. Comparison: 11/06/2012. Technique: PA and lateral views. Findings: Mediastinum and cardiac silhouette are within normal limits and stable. Right-sided PICC line with tip in the SVC. 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 No obvious acute consolidation, effusion, or pneumothorax. Skeletal structures are intact. Impression: Chronic pleuroparenchymal changes. No obvious acute process. Please refer to recent chest CT dated 02/19/2017 for subtle findings that are obscured by radiographic evaluation. Signed by Mckinley Larsen MD 02/23/2017 10:44 A
--- NOTE | 2017-02-23 11:40 | IPNPDOC ---
Subjective Date Seen The patient was seen on 02/23/17. Subjective Chief Complaint/HPI The patient is a 86-year-old male admitted with a reason for visit of Ascites. Events since last encounter pt seen and examined, complaining of nausea and shortness of breath Objective Physical Examination General Exam: Positive: Alert, Cooperative, No Acute Distress Eye Exam: Positive: Conjunctiva & lids normal, EOMI, PERRLA, Negative: Sclera icteric Chest Exam: Positive: Clear to auscultation, Normal air movement Heart Exam: Positive: Rate Normal, Regular Rhythm Abdomen Exam: Positive: Normal bowel sounds, Other (ascities), Soft Extremity Exam: Positive: Normal pulses, Negative: Clubbing, Cyanosis, Edema Neuro Exam: Positive: Cranial Nerves 3-12 NL, Normal Gait, Normal Speech, Reflexes 2+ Assessment /Plan Problems (1) Abdominal mass Status: Acute Problem Text: * mesenteric adenopathy seen on abd CT * 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 * scheduled for biopsy 02/21 * await results (2) Lymphadenopathy Status: Acute Problem Text: * mesenteric adenopathy, mediastinal lymph node 22mm and upper lobe density * await biopsy results * 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, 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 (3) Ascites Status: Acute Problem Text: * s/p paracentesis 02/19 4650cc removed * cytology showed no malignancy identified * biopsy path is pending * pt will likely need another paracentesis in am (4) Early satiety Status: Acute Problem Text: * will hold tpn today due to shortness of breath * await chest xray result (5) PVD (peripheral vascular disease) Status: Chronic Response to Treatment: Stable Problem Text: * s/p left femoral stent (6) Nausea Status: Acute Problem Text: start zofran 4mg Q4 hours (7) Shortness of breath Status: Acute Problem Text: * chest xray (8) Constipation Status: Acute Problem Text: * will add bowel meds Plan/VTE VTE Prophylaxis Ordered?: Yes VS, I&O, 24H, Fishbone Vital Signs/I&O Vital Signs Date Time Temp Pulse Resp B/P Pulse Ox O2 Delivery O2 Flow Rate FiO2 02/23/17 10:00 Room Air 02/23/17 06:00 99.0 95 19 114/58 96 I&O- Last 24 Hours up to 6 AM 02/23/17 06:00 Intake Total 1440 ml Output Total 500 ml Balance 940 ml Laboratory Data 24H LABS Laboratory Tests 2 02/22/17 17:13: Bedside Glucose (Misc Panel) 169H 02/22/17 23:45: Bedside Glucose (Misc Panel) 139H 02/23/17 05:39: Bedside Glucose (Misc Panel) 134H 02/23/17 06:06: Blood Urea Nitrogen 36H, Creatinine 1.06, Sodium Level 131L, Potassium Level 4.8 , Chloride Level 100, Carbon Dioxide Level 23, Calcium Level 9.4, Aspartate Amino Transf (AST/SGOT) 115H, Alanine Aminotransferase (ALT/SGPT) 119H, Alkaline Phosphatase 115, Total Bilirubin 1.1H, Total Protein 5.2L, Albumin 2.0L , Albumin/Globulin Ratio 0.63L, Anion Gap 8, White Blood Count 11.8H, Red Blood Count 4.06L, Hemoglobin 13.5L, Hematocrit 39.2L, Mean Corpuscular Volume 96.6H, Mean Corpuscular Hemoglobin 33.2H, Mean Corpuscular Hemoglobin Concent 34.4, Red Cell Distribution Width 13.0, Platelet Count 170, Neutrophils (%) (Auto) 80.8H, Lymphocytes (%) (Auto) 4.5L, Monocytes (%) (Auto) 9.1H, Eosinophils (%) ( Auto) 2.9, Basophils (%) (Auto) 0.4, Neutrophils # (Auto) 9.5H, Lymphocytes # ( Auto) 0.8L, Monocytes # (Auto) 1.1H, Eosinophils # (Auto) 0.3, Basophils # (Auto ) 0.0, Glomerular Filtration Rate > 60.0, Large Unclassified Cells # 0.3, Large Unclassified Cells % 2.4, Magnesium Level 1.9 CBC/BMP Laboratory Tests 02/23/17 06:06 Calcium Level 9.4, Aspartate Amino Transf (AST/SGOT) 115 H, Alanine Aminotransferase (ALT/SGPT) 119 H, Alkaline Phosphatase 115, Total Bilirubin 1.1 H, Total Protein 5.2 L, Albumin 2.0 L, Red Blood Count 4.06 L, Mean Corpuscular Volume 96.6 H, Mean Corpuscular Hemoglobin 33.2 H, Mean Corpuscular Hemoglobin Concent 34.4, Red Cell Distribution Width 13.0, Neutrophils (%) (Auto ) 80.8 H, Lymphocytes (%) (Auto) 4.5 L, Monocytes (%) (Auto) 9.1 H, Eosinophils (%) (Auto) 2.9, Basophils (%) (Auto) 0.4, Neutrophils # (Auto) 9.5 H, Lymphocytes # (Auto) 0.8 L, Monocytes # (Auto) 1.1 H, Eosinophils # (Auto) 0.3, Basophils # (Auto) 0.0 Microbiology Microbiology 02/19/17 Acid Fast Stain, Received Pending 02/19/17 Mycobacterial Culture, Received Pending 02/19/17 Fungal Smear, Received Pending 02/19/17 Fungal Culture, Received Pending 02/19/17 Gram Stain - Final, Complete 02/19/17 Body Fluid Culture - Final, Complete KENNA COX DO Feb 23, 2017 11:40
[2017-02-23] MEDS ORDERED: MIRALAX *UNIT DOSE* 17GM PACKET PO PRN (11:45)
[2017-02-23] MEDS: DOCUSATE SODIUM 100 MG CAP PO SCH ×2 (11:49→20:05)
[2017-02-23] MEDS: MOM 30ML SUSPENSION UDC PO SCH (11:49)
[2017-02-23 14:00] VITALS: BP 129/63
[2017-02-23] MEDS ORDERED: AMINO AC/ELECTROLYTE/DEX/CALC 2,000 ML IV SCH (18:00)
[2017-02-23] MEDS ORDERED: FAT EMULSION IV 20% 500 ML IV SCH (18:00)
[2017-02-23 22:00] VITALS: BP 113/66
[2017-02-24] MEDS: SODIUM CHLORIDE 0.9% INJ 10 ML SYR IV SCH ×2 (05:24→15:41)
[2017-02-24 05:46] LABS: BASO % 0.4 % (0.0-1.0); EOS # 0.4 K/mm3 (0.0-0.50); EOS % 2.8 % (0.0-3.0); LARGE UNSTAINED CELL # 0.3 K/mm3 (0.0-0.4); LARGE UNSTAINED CELL % 2.6 % (0.0-4.0); LYMPH # 0.9 K/mm3 (1.5-4.5); LYMPH % 4.3 % (24.0-44.0); MEAN CORPUSCULAR HEMOGLOBIN 32.2 pg (27.0-33.0); MEAN CORPUSCULAR HGB CONC 33.8 g/dl (32.0-36.5); MEAN CORPUSCULAR VOLUME 95.2 fl (80.0-96.0); MONO # 1.2 K/mm3 (0.0-0.8); MONO % 9.6 % (0.0-5.0); NEUTROPHILS # 10.1 K/mm3 (1.8-7.7); NEUTROPHILS % 80.3 % (36.0-66.0); PLATELET COUNT, AUTOMATED 182 k/mm3 (150-450); RED CELL DISTRIBUTION WIDTH 12.8 % (11.5-14.5); WHITE BLOOD COUNT 12.6 K/mm3 (4.0-10.0)
[2017-02-24] MEDS: HumaLOG INSULIN (NovoLOG) PER UNIT SC SCH ×2 (05:48→12:11)
[2017-02-24 06:00] VITALS: BP 116/64
[2017-02-24 06:19] LABS: ALBUMIN 2.2 GM/DL (3.2-5.2); ALBUMIN/GLOBULIN RATIO 0.85 (1.00-1.93); ALKALINE PHOSPHATASE 125 U/L (45-117); ALT/SGPT 79 U/L (12-78); ANION GAP 7 MEQ/L (8-16); AST/SGOT 81 U/L (15-37); BILIRUBIN,TOTAL 1.2 MG/DL (0.2-1.0); BLOOD UREA NITROGEN 42 MG/DL (7-18); CALCIUM LEVEL 9.6 MG/DL (8.8-10.2); CARBON DIOXIDE LEVEL 27 MEQ/L (21-32); CHLORIDE LEVEL 100 MEQ/L (98-107); GLOMERULAR FILTRATION RATE > 60.0 (>35); GLUCOSE, FASTING 107 MG/DL (83-110); MAGNESIUM LEVEL 2.3 MG/DL (1.8-2.4); POTASSIUM SERUM 5.1 MEQ/L (3.5-5.1); SODIUM LEVEL 134 MEQ/L (136-145); TOTAL PROTEIN 4.8 GM/DL (6.4-8.2)
[2017-02-24] MEDS: MOM 30ML SUSPENSION UDC PO SCH ×2 (08:38→08:45)
[2017-02-24] MEDS: DOCUSATE SODIUM 100 MG CAP PO SCH ×3 (08:38→20:07)
[2017-02-24 14:00] VITALS: BP 123/71
--- NOTE | 2017-02-24 16:13 | IPNPDOC ---
Subjective Date Seen The patient was seen on 02/24/17. Subjective Chief Complaint/HPI The patient is a 86-year-old male admitted with a reason for visit of Ascites. Events since last encounter pt seen and examined was frustrated today, still complaining of abd pain and nausea, no appetite Constitutional: Denies: Chills, Fever, Night Sweats Gastrointestinal: Reports: Abdominal Pain, Nausea Objective Physical Examination General Exam: Positive: Alert, Cooperative, No Acute Distress Eye Exam: Positive: Conjunctiva & lids normal, EOMI, PERRLA, Negative: Sclera icteric Chest Exam: Positive: Clear to auscultation, Normal air movement Heart Exam: Positive: Rate Normal, Regular Rhythm Abdomen Exam: Positive: Normal bowel sounds, Other (ascities), Soft, Tenderness Extremity Exam: Positive: Normal pulses, Negative: Clubbing, Cyanosis, Edema Neuro Exam: Positive: Cranial Nerves 3-12 NL, Normal Gait, Normal Speech, Reflexes 2+ Assessment /Plan Problems (1) Abdominal mass Status: Acute Problem Text: * mesenteric adenopathy seen on abd CT * 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 * scheduled for biopsy 02/21 * await results * Dr Esquivel is following (2) Lymphadenopathy Status: Acute Problem Text: * mesenteric adenopathy, mediastinal lymph node 22mm and upper lobe density * await biopsy results * 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, (3) Ascites Status: Acute Problem Text: * s/p paracentesis 02/19 4650cc removed * cytology showed no malignancy identified * biopsy path is pending * pt will need Pleurx catheter, Dr conner is consulted * PFS will be consulted to arrange for catheter supplies at home (4) Early satiety Status: Acute Problem Text: * will hold tpn today per patient's request (5) PVD (peripheral vascular disease) Status: Chronic Response to Treatment: Stable Problem Text: * s/p left femoral stent (6) Nausea Status: Acute Problem Text: start zofran 4mg Q4 hours (7) Shortness of breath Status: Resolved (8) Constipation Status: Resolved Problem Text: * continue PRN bowel meds Plan/VTE VTE Prophylaxis Ordered?: Yes VS, I&O, 24H, Fishbone Vital Signs/I&O Vital Signs Date Time Temp Pulse Resp B/P Pulse Ox O2 Delivery O2 Flow Rate FiO2 02/24/17 14:00 98.0 91 18 123/71 98 Room Air I&O- Last 24 Hours up to 6 AM 02/24/17 06:00 Intake Total 780 ml Output Total 550 ml Balance 230 ml Laboratory Data 24H LABS Laboratory Tests 2 02/24/17 05:24: Blood Urea Nitrogen 42H, Creatinine 1.10, Sodium Level 134L, Potassium Level 5.1 , Chloride Level 100, Carbon Dioxide Level 27, Calcium Level 9.6, Aspartate Amino Transf (AST/SGOT) 81H, Alanine Aminotransferase (ALT/SGPT) 79H, Alkaline Phosphatase 125H, Total Bilirubin 1.2H, Total Protein 4.8L, Albumin 2.2L, Albumin/Globulin Ratio 0.85L, Anion Gap 7L, White Blood Count 12.6H, Red Blood Count 4.14L, Hemoglobin 13.3L, Hematocrit 39.4L, Mean Corpuscular Volume 95.2, Mean Corpuscular Hemoglobin 32.2, Mean Corpuscular Hemoglobin Concent 33.8, Red Cell Distribution Width 12.8, Platelet Count 182, Neutrophils (%) (Auto) 80.3H, Lymphocytes (%) (Auto) 4.3L, Monocytes (%) (Auto) 9.6H, Eosinophils (%) (Auto) 2.8, Basophils (%) (Auto) 0.4, Neutrophils # (Auto) 10.1H, Lymphocytes # (Auto) 0.9L, Monocytes # (Auto) 1.2H, Eosinophils # (Auto) 0.4, Basophils # (Auto) 0.0 , Glomerular Filtration Rate > 60.0, Large Unclassified Cells # 0.3, Large Unclassified Cells % 2.6, Magnesium Level 2.3 CBC/BMP Laboratory Tests 02/24/17 05:24 Calcium Level 9.6, Aspartate Amino Transf (AST/SGOT) 81 H, Alanine Aminotransferase (ALT/SGPT) 79 H, Alkaline Phosphatase 125 H, Total Bilirubin 1.2 H, Total Protein 4.8 L, Albumin 2.2 L, Red Blood Count 4.14 L, Mean Corpuscular Volume 95.2, Mean Corpuscular Hemoglobin 32.2, Mean Corpuscular Hemoglobin Concent 33.8, Red Cell Distribution Width 12.8, Neutrophils (%) (Auto ) 80.3 H, Lymphocytes (%) (Auto) 4.3 L, Monocytes (%) (Auto) 9.6 H, Eosinophils (%) (Auto) 2.8, Basophils (%) (Auto) 0.4, Neutrophils # (Auto) 10.1 H, Lymphocytes # (Auto) 0.9 L, Monocytes # (Auto) 1.2 H, Eosinophils # (Auto) 0.4, Basophils # (Auto) 0.0 Microbiology Microbiology 02/19/17 Acid Fast Stain, Received Pending 02/19/17 Mycobacterial Culture, Received Pending 02/19/17 Fungal Smear, Received Pending 02/19/17 Fungal Culture, Received Pending 02/19/17 Gram Stain - Final, Complete 02/19/17 Body Fluid Culture - Final, Complete KENNA COX DO Feb 24, 2017 16:13
[2017-02-24 22:00] VITALS: BP 119/62
[2017-02-25] MEDS: SODIUM CHLORIDE 0.9% INJ 10 ML SYR IV SCH ×2 (05:08→18:09)
[2017-02-25 05:33] LABS: BASO % 0.4 % (0.0-1.0); EOS # 0.2 K/mm3 (0.0-0.50); EOS % 1.5 % (0.0-3.0); LARGE UNSTAINED CELL # 0.3 K/mm3 (0.0-0.4); LARGE UNSTAINED CELL % 2.6 % (0.0-4.0); LYMPH # 0.9 K/mm3 (1.5-4.5); LYMPH % 4.5 % (24.0-44.0); MEAN CORPUSCULAR HEMOGLOBIN 32.8 pg (27.0-33.0); MEAN CORPUSCULAR HGB CONC 34.3 g/dl (32.0-36.5); MEAN CORPUSCULAR VOLUME 95.5 fl (80.0-96.0); MONO # 1.1 K/mm3 (0.0-0.8); MONO % 9.2 % (0.0-5.0); NEUTROPHILS # 9.8 K/mm3 (1.8-7.7); NEUTROPHILS % 81.8 % (36.0-66.0); PLATELET COUNT, AUTOMATED 181 k/mm3 (150-450)
[2017-02-25 05:43] LABS: ALBUMIN 2.3 GM/DL (3.2-5.2); ALBUMIN/GLOBULIN RATIO 0.85 (1.00-1.93); ALKALINE PHOSPHATASE 145 U/L (45-117); ALT/SGPT 63 U/L (12-78); ANION GAP 9 MEQ/L (8-16); AST/SGOT 69 U/L (15-37); BILIRUBIN,TOTAL 1.9 MG/DL (0.2-1.0); BLOOD UREA NITROGEN 51 MG/DL (7-18); CALCIUM LEVEL 9.5 MG/DL (8.8-10.2); CARBON DIOXIDE LEVEL 24 MEQ/L (21-32); CHLORIDE LEVEL 100 MEQ/L (98-107); CREATININE FOR GFR 1.21 MG/DL (0.70-1.30); GLOMERULAR FILTRATION RATE > 60.0 (>35); GLUCOSE, FASTING 89 MG/DL (83-110); MAGNESIUM LEVEL 2.3 MG/DL (1.8-2.4); SODIUM LEVEL 133 MEQ/L (136-145)
[2017-02-25 05:45] LABS: POTASSIUM SERUM 5.4 MEQ/L (3.5-5.1)
[2017-02-25 06:00] VITALS: BP 117/65
[2017-02-25] MEDS ORDERED: SOD POLYSTYRENE SULFONATE SUSP 15 GM/60 ML UD PO ONE (07:30)
[2017-02-25] MEDS: DOCUSATE SODIUM 100 MG CAP PO SCH ×2 (09:13→20:08)
[2017-02-25] MEDS: MOM 30ML SUSPENSION UDC PO SCH (09:13)
--- NOTE | 2017-02-25 13:25 | IPN ---
MEDICAL ONCOLOGY INPATIENT FOLLOWUP DATE OF SERVICE: 02/25/2017 DIAGNOSES: Abdominal ascites with mesenteric adenopathy and elevated LDH suspicious for B-cell lymphoma, status post paracentesis, fluid cytology negative, lymph node biopsy pathology pending. Mr. Silver is lying in bed surrounded by family members today. Dr. Nieves was exiting the room as I approached. Dr. Nieves so far is not able to place a PleurX abdominally due to waiting for the PleurX valve. The patient has developed some recurrence of ascites and is slightly uncomfortable. I introduced myself to the patient's family members, including Luma Dumont, his [id number] ([phone]), Alize Tirado, his niece, and they also informed me Rosanna Carcamo is the patient's healthcare proxy and niece (her telephone number [phone]). I reviewed the findings so far, the suspicion for lymphoma. I explained lymphoma can be aggressive or indolent, and treatment depends on the type. Should lymphoma be demonstrated on the current pending tissue biopsy, I would recommend starting prednisone 1 mg/kg for a short course, for example, 5 days, with appropriate gastrointestinal (GI) prophylaxis as empiric treatment to try to quell the patient's symptoms. He is having anorexia with even a mild to moderate return of ascites. He denies new shortness of breath, cough, chest pain, abdominal pain. Just the feeling of fullness and difficulty swallowing and eating. LIMITED EXAMINATION: Vital signs: Temperature 97.3, blood pressure 117/65, heart rate 89, oxygen (O2 ) saturation 97 on room air, and respiratory rate 18, heart rate 89. The patient is a wiry slender man, edentulous, reclining in bed. The abdomen notable for mild distention, soft, minimal tenderness. Lungs are clear to auscultation bilaterally anteriorly. LABORATORIES: WBC 12, hemoglobin 13, hematocrit 39, platelet 181, neutrophil percentage 81. Sodium 133, creatinine 1.21, AST and ALT 69 and 63 respectively, alkaline phosphatase 145, LDH 02/19/2017 was 761, albumin 2.3. IMPRESSION: Mr. Molina Silver is an 86-year-old man admitted with abdominal adenopathy and ascites highly suspicious for B-cell lymphoma and in the setting of a high LDH suspicious for a diffuse large B-cell lymphoma. He is status post paracentesis with nondiagnostic cytology. A core biopsies been obtained and is pending. 1. Should the biopsy show lymphoma, my strong recommendation is that the patient be started on allopurinol 300 mg by mouth daily as prophylaxis against tumor lysis syndrome and also started on prednisone 1 mg/kg by mouth daily for 5 days with proton pump inhibitor (PPI) prophylaxis as empiric treatment of a large B-cell lymphoma. These may help temporize the patient's adenopathy and symptoms and prevent tumor lysis syndrome. 2. Consider repeat therapeutic paracentesis until PleurX can be placed. I know Dr. Nieves is away next week, jeopardizing the possibility this can happen in the short-term. 3. Should the patient be diagnosed with lymphoma, get started on prednisone and allopurinol and is tolerating these well, I would be reasonable for him to discharge and be seen in rapid oncology outpatient followup in the clinic to begin treatment. He has early-stage lymphoma based on a single site of adenopathy in one anatomic area. This is eminently treatable, and his symptoms can be controlled, but as a first step, I would like him to start on the prednisone and allopurinol. 4. If and when he begins prednisone, tumor lysis laboratories should be followed. These include: Two dots lactate dehydrogenase, creatinine, uric acid , AST, potassium, calcium, glucose. These should be repeated daily. Within the bounds of this patient's cardiorespiratory limits, daily hydration would also be a good idea if he begins oral prednisone. I will continue to follow intermittently. Mostly, we are waiting for the pathology result. [facility]
[2017-02-25 14:00] VITALS: BP 113/59
--- NOTE | 2017-02-25 15:20 | IPNPDOC ---
Text Note Date of Service The patient was seen on 02/25/17. NOTE Subjective: Pt states he feels fine, although his appetite is still poor. Denies CP/palpations. No N/V/abd pain. Would like to be restarted on TPN. Objective: Vitals: (see below) General: No acute distress, laying comfortably in bed. HEENT: Moist mucous membranes. Neck: No JVD or lymphadenopathy Cardiac: RRR, No murmurs Pulm: Clear to auscultation b/l. No wheezing, rhonchi Abd: NT.Mildly distended. + BS Ext: No edema or cyanosis Labs (see below) Images: CT Neck 02/19/17 IMPRESSION: 1. There is no neck mass or adenopathy. 2. There is a 1.2 cm parenchymal density in the right upper lobe. Please refer to CT of the chest. CT Chest 02/19/17 Impression: 1. 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 2. A solitary enlarged pretracheal mediastinal lymph node measures 22 mm., and a small new irregular subpleural density in the posterior right upper lobe represents change from prior examination. Assessment/Plan 1. Large mesentery mass likely representating high grade lymphoma vs malignancy. Biopsy pending. Appreciate Dr. Hunter's input. 2. Ascites - likely 2/2 #1. s/p paracentesis. PleureX catheter entertained, and thought to be unlikely to be placed per IR as the patient does not a hospice patient. I will consider another paracentesis. 3. Peripheral vascular disease status post stent 4. Constipation resolved- 5. Malnutrition - on TPN as patient is now tolerating diet. DVT prophy: SCDs VS,Fishbone, I+O VS, Fishbone, I+O Laboratory Tests 02/25/17 05:09 Calcium Level 9.5, Aspartate Amino Transf (AST/SGOT) 69 H, Alanine Aminotransferase (ALT/SGPT) 63, Alkaline Phosphatase 145 H, Total Bilirubin 1.9 #H, Total Protein 5.0 L, Albumin 2.3 L, Red Blood Count 4.09 L, Mean Corpuscular Volume 95.5, Mean Corpuscular Hemoglobin 32.8, Mean Corpuscular Hemoglobin Concent 34.3, Red Cell Distribution Width 13.0, Neutrophils (%) (Auto ) 81.8 H, Lymphocytes (%) (Auto) 4.5 L, Monocytes (%) (Auto) 9.2 H, Eosinophils (%) (Auto) 1.5, Basophils (%) (Auto) 0.4, Neutrophils # (Auto) 9.8 H, Lymphocytes # (Auto) 0.9 L, Monocytes # (Auto) 1.1 H, Eosinophils # (Auto) 0.2, Basophils # (Auto) 0.0 Vital Signs Date Time Temp Pulse Resp B/P Pulse Ox O2 Delivery O2 Flow Rate FiO2 02/25/17 14:00 98.6 82 18 113/59 98 Room Air I&O- Last 24 Hours up to 6 AM 02/25/17 05:59 Intake Total 2310 ml Output Total 645 ml Balance 1665 ml FABIAN RICHARDS MD Feb 25, 2017 15:20
[2017-02-25] MEDS ORDERED: [UNRECOGNIZED DRUG - OTHER] IV SCH ×6 (18:00)
[2017-02-25] MEDS ORDERED: SODIUM CHLORIDE IV SCH ×6 (18:00)
[2017-02-25] MEDS ORDERED: SODIUM ACETATE IV SCH ×6 (18:00)
[2017-02-25] MEDS ORDERED: FAT EMULSION IV 20% 500 ML IV SCH (18:00)
[2017-02-25] MEDS: HumaLOG INSULIN (NovoLOG) PER UNIT SC SCH ×2 (18:00→23:37)
[2017-02-25 22:00] VITALS: BP 113/64
[2017-02-26 06:00] VITALS: BP 105/60
[2017-02-26] MEDS: SODIUM CHLORIDE 0.9% INJ 10 ML SYR IV SCH ×2 (06:05→17:58)
[2017-02-26] MEDS: HumaLOG INSULIN (NovoLOG) PER UNIT SC SCH ×3 (06:05→18:04)
[2017-02-26 06:57] LABS: ALBUMIN 2.1 GM/DL (3.2-5.2); ALBUMIN/GLOBULIN RATIO 0.78 (1.00-1.93); BILIRUBIN,TOTAL 1.1 MG/DL (0.2-1.0); CALCIUM LEVEL 8.9 MG/DL (8.8-10.2); CREATININE FOR GFR 1.26 MG/DL (0.70-1.30); GLOMERULAR FILTRATION RATE 57.5 (>35); MAGNESIUM LEVEL 2.3 MG/DL (1.8-2.4); POTASSIUM SERUM 4.1 MEQ/L (3.5-5.1); TOTAL PROTEIN 4.8 GM/DL (6.4-8.2)
[2017-02-26 07:02] LABS: BASO % 0.4 % (0.0-1.0); EOS # 0.3 K/mm3 (0.0-0.50); EOS % 2.4 % (0.0-3.0); LARGE UNSTAINED CELL # 0.2 K/mm3 (0.0-0.4); LARGE UNSTAINED CELL % 1.8 % (0.0-4.0); LYMPH # 0.7 K/mm3 (1.5-4.5); LYMPH % 4.8 % (24.0-44.0); MEAN CORPUSCULAR HEMOGLOBIN 32.5 pg (27.0-33.0); MEAN CORPUSCULAR HGB CONC 34.5 g/dl (32.0-36.5); MEAN CORPUSCULAR VOLUME 94.3 fl (80.0-96.0); MONO # 0.9 K/mm3 (0.0-0.8); MONO % 8.9 % (0.0-5.0); NEUTROPHILS # 8.6 K/mm3 (1.8-7.7); NEUTROPHILS % 81.8 % (36.0-66.0); PLATELET COUNT, AUTOMATED 195 k/mm3 (150-450); RED CELL DISTRIBUTION WIDTH 12.8 % (11.5-14.5); WHITE BLOOD COUNT 10.5 K/mm3 (4.0-10.0)
[2017-02-26] MEDS: MOM 30ML SUSPENSION UDC PO SCH (09:00)
[2017-02-26] MEDS: DOCUSATE SODIUM 100 MG CAP PO SCH ×2 (09:00→20:11)
[2017-02-26] MEDS ORDERED: IBUPROFEN 400 MG TAB PO PRN (13:15)
--- NOTE | 2017-02-26 14:14 | IPNPDOC ---
Text Note Date of Service The patient was seen on 02/26/17. NOTE Subjective: Pt states he feels that food is getting stuck when he swallows. Denies CP/palpations. No N/V/abd pain. Objective: Vitals: (see below) General: No acute distress, laying comfortably in bed. HEENT: Moist mucous membranes. Neck: No JVD or lymphadenopathy Cardiac: RRR, No murmurs Pulm: Clear to auscultation b/l. No wheezing, rhonchi Abd: NT.Mildly distended. + BS Ext: No edema or cyanosis Labs (see below) Images: CT Neck 02/19/17 IMPRESSION: 1. There is no neck mass or adenopathy. 2. There is a 1.2 cm parenchymal density in the right upper lobe. Please refer to CT of the chest. CT Chest 02/19/17 Impression: 1. 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 2. A solitary enlarged pretracheal mediastinal lymph node measures 22 mm., and a small new irregular subpleural density in the posterior right upper lobe represents change from prior examination. Assessment/Plan 1. Large mesentery mass likely representation high grade lymphoma vs malignancy. Biopsy pending. Appreciate Dr. Hunter's input. 2. Ascites - likely 2/2 #1. s/p paracentesis. PleureX catheter entertained, and thought to be unlikely to be placed per IR as the patient does not a hospice patient. Will have another paracentesis today. 3. Peripheral vascular disease status post stent 4. Constipation resolved- 5. Malnutrition - on TPN as patient is not tolerating diet. 6. ? Dysphasia - will obtain barium swallow. 7. RUL subpleural density - Will need outpt PET scan. DVT prophy: SCDs VS,Fishbone, I+O VS, Fishbone, I+O Laboratory Tests 02/26/17 06:13 Calcium Level 8.9, Aspartate Amino Transf (AST/SGOT) 51 H, Alanine Aminotransferase (ALT/SGPT) 47, Alkaline Phosphatase 130 H, Total Bilirubin 1.1 H, Total Protein 4.8 L, Albumin 2.1 L, Red Blood Count 3.89 L, Mean Corpuscular Volume 94.3, Mean Corpuscular Hemoglobin 32.5, Mean Corpuscular Hemoglobin Concent 34.5, Red Cell Distribution Width 12.8, Neutrophils (%) (Auto) 81.8 H, Lymphocytes (%) (Auto) 4.8 L, Monocytes (%) (Auto) 8.9 H, Eosinophils (%) (Auto ) 2.4, Basophils (%) (Auto) 0.4, Neutrophils # (Auto) 8.6 H, Lymphocytes # (Auto ) 0.7 L, Monocytes # (Auto) 0.9 H, Eosinophils # (Auto) 0.3, Basophils # (Auto) 0.0 Vital Signs Date Time Temp Pulse Resp B/P Pulse Ox O2 Delivery O2 Flow Rate FiO2 02/26/17 06:00 99.7 70 16 105/60 95 Room Air I&O- Last 24 Hours up to 6 AM 02/26/17 06:00 Intake Total 1380 ml Output Total 300 ml Balance 1080 ml FABIAN RICHARDS MD Feb 26, 2017 14:14
[2017-02-26 15:55] VITALS: BP 111/60
[2017-02-26 16:47] LABS: RBC ASCITES FLUID < 10 (<10mm3 cells/uL); TNC ASCITES FLUID 4182 cells/uL (0-20)
[2017-02-26 16:48] LABS: BF DIFF IF INDICATED? YES (NO)
[2017-02-26] MEDS ORDERED: SODIUM ACETATE IV SCH ×8 (18:00)
[2017-02-26] MEDS ORDERED: FAT EMULSION IV 20% 500 ML IV SCH (18:00)
[2017-02-26] MEDS ORDERED: SODIUM CHLORIDE IV SCH ×8 (18:00)
[2017-02-26] MEDS ORDERED: [UNRECOGNIZED DRUG - OTHER] IV SCH ×8 (18:00)
[2017-02-26 22:00] VITALS: BP 104/57
[2017-02-26 22:07] LABS: CC BF DIFF EXAM CYTOCENTRIFUGE
--- NOTE | 2017-02-26 22:47 | REP ---
Diagnostic and therapeutic paracentesis: History: Evaluate ascites. Mesenteric adenopathy. Preliminary sonography confirms the presence of moderate to large amount of diffuse abdominal ascites. The patient was interviewed and informed consent was obtained. Sonography was utilized to identify the optimal puncture site and this was marked in the overlying skin in the right flank. The patient safety time-out was articulated and agreed to. The right flank area was prepped and draped in the usual fashion. Using 1% lidocaine for local anesthetic and aseptic precautions, an #8-Filipino paracentesis catheter was passed into the right peritoneal space with trocar technique. Free flowing lion blood-tinged ascites was retrieved and 2850 ml was withdrawn and submitted for analysis as requested. Catheter was withdrawn and the puncture site covered with an OpSite dressing. The patient tolerated procedure well. Impression: Ultrasound guided therapeutic and diagnostic paracentesis. Signed by Wayne Gupta MD 02/27/2017 08:29 A
[2017-02-27] MEDS: HumaLOG INSULIN (NovoLOG) PER UNIT SC SCH ×4 (00:35→18:02)
[2017-02-27 06:00] VITALS: BP 101/57
[2017-02-27] MEDS: SODIUM CHLORIDE 0.9% INJ 10 ML SYR IV SCH ×2 (06:00→18:01)
[2017-02-27 06:16] LABS: MEAN CORPUSCULAR HEMOGLOBIN 32.8 pg (27.0-33.0); MEAN CORPUSCULAR HGB CONC 35.1 g/dl (32.0-36.5); MEAN CORPUSCULAR VOLUME 93.5 fl (80.0-96.0); RED CELL DISTRIBUTION WIDTH 12.7 % (11.5-14.5)
[2017-02-27 06:37] LABS: ALBUMIN 2.1 GM/DL (3.2-5.2); ALBUMIN/GLOBULIN RATIO 0.81 (1.00-1.93); ALKALINE PHOSPHATASE 123 U/L (45-117); ALT/SGPT 40 U/L (12-78); ANION GAP 9 MEQ/L (8-16); AST/SGOT 49 U/L (15-37); BILIRUBIN,TOTAL 0.9 MG/DL (0.2-1.0); BLOOD UREA NITROGEN 47 MG/DL (7-18); CALCIUM LEVEL 8.7 MG/DL (8.8-10.2); CARBON DIOXIDE LEVEL 27 MEQ/L (21-32); CHLORIDE LEVEL 99 MEQ/L (98-107); CREATININE FOR GFR 1.11 MG/DL (0.70-1.30); GLOMERULAR FILTRATION RATE > 60.0 (>35); GLUCOSE, FASTING 96 MG/DL (83-110); POTASSIUM SERUM 3.5 MEQ/L (3.5-5.1); SODIUM LEVEL 135 MEQ/L (136-145); TOTAL PROTEIN 4.7 GM/DL (6.4-8.2)
[2017-02-27] MEDS: DOCUSATE SODIUM 100 MG CAP PO SCH ×2 (09:23→20:19)
[2017-02-27] MEDS: MOM 30ML SUSPENSION UDC PO SCH (09:24)
[2017-02-27] MEDS: cefTRIAXone SOD 2 GM in D5W MINI-BAG PLUS 50 ML IV SCH (09:49)
[2017-02-27] MEDS ORDERED: E-Z-HD 98% w/w 340GM SUSP BTL As Ordered ONE (12:11)
[2017-02-27] MEDS ORDERED: E-Z PAQUE 60% w/v SUSP 355ML BOTTLE As Ordered ONE (12:11)
[2017-02-27] MEDS ORDERED: E-Z-GAS II EFFERVESCENT PACKET (SODIUM BICARB./CITRIC ACID/SIMETHICONE) As Ordered ONE (12:11)
[2017-02-27 14:00] VITALS: BP 99/58
[2017-02-27] MEDS ORDERED: NS 1,000 ML IV ONE (14:15)
--- NOTE | 2017-02-27 14:25 | IPNPDOC ---
Text Note Date of Service The patient was seen on 02/27/17. NOTE Subjective: Ate dinner last night. Denies CP/palpations. No N/V/abd pain. Objective: Vitals: (see below) General: No acute distress, laying comfortably in bed. HEENT: Moist mucous membranes. Neck: No JVD or lymphadenopathy Cardiac: RRR, No murmurs Pulm: Clear to auscultation b/l. No wheezing, rhonchi Abd: NT.Mildly distended. + BS Ext: No edema or cyanosis Labs (see below) Images: CT Neck 02/19/17 IMPRESSION: 1. There is no neck mass or adenopathy. 2. There is a 1.2 cm parenchymal density in the right upper lobe. Please refer to CT of the chest. CT Chest 02/19/17 Impression: 1. 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 2. A solitary enlarged pretracheal mediastinal lymph node measures 22 mm., and a small new irregular subpleural density in the posterior right upper lobe represents change from prior examination. Assessment/Plan 1. 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 Spoke with Dr. Esquivel with recommendations for allopurinol 300mg daily, prednisone 60mg daily, monitoring of CMP, LHD, uric acid daily. If unable to disposition for d/c despite prednisone, will need to transfer to [place] for inpatient chemo. 2. Ascites - likely 2/2 #1. s/p paracentesis. PleureX catheter entertained, and thought to be unlikely to be placed per IR as the patient does not a hospice patient. Will have another paracentesis today. Neutrophils 1,129 on paracentesis - will start short term Abx to cover for possible SBP. 3. Peripheral vascular disease status post stent 4. Constipation resolved- 5. Malnutrition - on TPN as patient is not tolerating diet. 6. ? Dysphasia - will obtain barium swallow. 7. RUL subpleural density - Will need outpt PET scan. DVT prophy: SCDs VS,Fishbone, I+O VS, Fishbone, I+O Laboratory Tests 02/27/17 06:00 Calcium Level 8.7 L, Aspartate Amino Transf (AST/SGOT) 49 H, Alanine Aminotransferase (ALT/SGPT) 40, Alkaline Phosphatase 123 H, Total Bilirubin 0.9 , Total Protein 4.7 L, Albumin 2.1 L, Red Blood Count 3.80 L, Mean Corpuscular Volume 93.5, Mean Corpuscular Hemoglobin 32.8, Mean Corpuscular Hemoglobin Concent 35.1, Red Cell Distribution Width 12.7 Vital Signs Date Time Temp Pulse Resp B/P Pulse Ox O2 Delivery O2 Flow Rate FiO2 02/27/17 06:00 98.2 86 18 101/57 97 Room Air I&O- Last 24 Hours up to 6 AM 02/27/17 05:59 Intake Total 1950 ml Output Total 750 ml Balance 1200 ml FABIAN RICHARDS MD Feb 27, 2017 14:25
--- NOTE | 2017-02-27 14:40 | REP ---
ESOPHAGRAM: Floor Nurse film of the chest demonstrates a right arm PICC line. 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 Swallowing mechanism appears normal with prompt passage of liquid barium through the oropharynx and hypopharynx into the esophagus. The esophagus is well distended. There are extensive tertiary contractions with somewhat delayed passage of barium through the gastroesophageal junction both in the NARANJO prone and upright positions. However, there is no stricture or mass involving the esophagus. There is a small hiatal hernia. I cannot assess for gastroesophageal reflux due to limited mobility. IMPRESSION: Extensive tertiary contractions of the esophagus. No stricture or mass. FLUOROSCOPY TIME: 1 minute 18 seconds. Signed by Oscar Paulino MD 02/27/2017 04:54 P
[2017-02-27] MEDS ORDERED: SODIUM ACETATE IV SCH ×6 (18:00)
[2017-02-27] MEDS ORDERED: SODIUM CHLORIDE IV SCH ×6 (18:00)
[2017-02-27] MEDS ORDERED: FAT EMULSION IV 20% 500 ML IV SCH (18:00)
[2017-02-27] MEDS ORDERED: [UNRECOGNIZED DRUG - OTHER] IV SCH ×6 (18:00)
[2017-02-27] MEDS ORDERED: AMINO AC/ELECTROLYTE/DEX/CALC 2,000 ML IV SCH (18:00)
[2017-02-27] MEDS: predniSONE 20 MG TAB PO SCH (18:01)
[2017-02-27] MEDS: ALLOPURINOL 300 MG TAB PO SCH (18:01)
[2017-02-27] MEDS: PANTOPRAZOLE 40MG TAB (PROTONIX) PO SCH (18:01)
--- NOTE | 2017-02-27 20:21 | CR ---
DATE OF CONSULTATION: 02/27/2017 Today the preliminary biopsy results returned as diffuse large B-cell lymphoma, [place] subtype pending. I recommended starting Mr. Silver on prednisone 1 mg/kg (60 mg) by mouth daily for 5 days as an attenuated CHOP regimen. Dr. Rendon got him started on this. In addition he was started on allopurinol and tumor lysis labs will be followed closely. Tonight Mr. Silver says he is feeling pretty good. At heartily today. Denies any pain currently. Still has some mild abdominal distension. He has been started on TPN for nutrition as he has not been able to swallow adequate amounts for such a while. I have enumerated tumor lysis labs in my prior note, repeated them to Dr. Rendon today. These should be followed daily and any significant uptake in uric acid, new hypo or hyperkalemia should be promptly addressed with IV fluids and appropriate correction. Currently the standard of care is not try alkalizing the urine for tumor lysis syndrome. I will follow daily as Mr. Delarosa progresses on the prednisone. If he is having a response we could think about completing the 5 days, doing some slight rehabilitation and brining him back to the office as an outpatient to try a combination of perhaps rituximab and prednisone. I spoke with his healthcare proxy, Rosanna Castro, . as well as his [id number], Luma Dumont, whom I had met at his side a few days ago. Family members were also at the bedside alla and I have explained all of the above to them as well. Mr. Silver took in the news and said he would like to try the prednisone and is hopeful he can go home. Finally, it is possible that he will not respond adequately to prednisone, that the lymphoma will progress, in this case see any clinical deterioration should prompt either addressing advance directives or transfer to [facility]. Diffuse large B-cell lymphoma even in an older person is a highly treatable type of lymphoma quickly responding to standard chemotherapy regimens, which can be given in half doses for elderly patient. Because we currently are unable to administered chemotherapy at [facility], I am trying as a stop gap measures starting him on the typical dose of prednisone that would be given in an R-CHOP regimen. However, if he does not appear to be responding or is deteriorating, the question of whether he wants to pursue treatment, which would mean transferred to another hospital, or abandoned treatment, needs to be addressed promptly. Again diffuse large B-cell lymphoma, particularly limited stage such as he has is a highly treatable type of cancer often going into durable remission. IMPRESSION: 1. Diffuse large B-cell lymphoma. Clinical staging stage I versus II (bone marrow biopsy now performed to complete staging workup). ECOG performance status 2. The patient is started on high-dose prednisone 1 mg/kg (60 mg) by mouth daily. Plan would be for him to receive this for 5 days. 2. He should continue with close followup of tumor lysis labs daily, uric acid, creatinine, potassium, calcium, glucose, LDH and hydration as needed. 3. Continue allopurinol 300 mg by mouth daily for the present. Typically this can be given during the first cycle of treatment in diffuse large B-cell lymphoma and dropped thereafter. I will continue to follow closely.
[2017-02-27 22:00] VITALS: BP 17/58
[2017-02-28] MEDS: HumaLOG INSULIN (NovoLOG) PER UNIT SC SCH ×3 (05:35→12:00)
[2017-02-28] MEDS: SODIUM CHLORIDE 0.9% INJ 10 ML SYR IV SCH ×2 (05:36→18:38)
[2017-02-28 06:00] VITALS: BP 107/57
[2017-02-28 06:28] LABS: URIC ACID 7.9 MG/DL (3.5-7.2)
[2017-02-28 08:41] LABS: ALBUMIN/GLOBULIN RATIO 0.69 (1.00-1.93); ALKALINE PHOSPHATASE 118 U/L (45-117); ALT/SGPT 44 U/L (12-78); ANION GAP 10 MEQ/L (8-16); AST/SGOT 58 U/L (15-37); BILIRUBIN,TOTAL 0.9 MG/DL (0.2-1.0); BLOOD UREA NITROGEN 50 MG/DL (7-18); CALCIUM LEVEL 8.8 MG/DL (8.8-10.2); CARBON DIOXIDE LEVEL 24 MEQ/L (21-32); CHLORIDE LEVEL 96 MEQ/L (98-107); CREATININE FOR GFR 1.17 MG/DL (0.70-1.30); GLOMERULAR FILTRATION RATE > 60.0 (>35); GLUCOSE, FASTING 175 MG/DL (83-110); SODIUM LEVEL 130 MEQ/L (136-145); TOTAL PROTEIN 4.9 GM/DL (6.4-8.2)
[2017-02-28 08:59] LABS: MEAN CORPUSCULAR HEMOGLOBIN 32.3 pg (27.0-33.0); MEAN CORPUSCULAR HGB CONC 34.4 g/dl (32.0-36.5); RED CELL DISTRIBUTION WIDTH 12.7 % (11.5-14.5); WHITE BLOOD COUNT 12.3 K/mm3 (4.0-10.0)
[2017-02-28] MEDS: MOM 30ML SUSPENSION UDC PO SCH (09:57)
[2017-02-28] MEDS: predniSONE 20 MG TAB PO SCH (09:57)
[2017-02-28] MEDS: DOCUSATE SODIUM 100 MG CAP PO SCH ×2 (09:57→20:34)
[2017-02-28] MEDS: ALLOPURINOL 300 MG TAB PO SCH (09:57)
[2017-02-28] MEDS: PANTOPRAZOLE 40MG TAB (PROTONIX) PO SCH (09:57)
[2017-02-28] MEDS: cefTRIAXone SOD 2 GM in D5W MINI-BAG PLUS 50 ML IV SCH (09:57)
--- NOTE | 2017-02-28 11:25 | IPNPDOC ---
Text Note Date of Service The patient was seen on 02/28/17. NOTE Subjective: Ate breakfast this am 2 eggs/3 toasts. Denies CP/palpations. No N/V/ abd pain. Objective: Vitals: (see below) General: No acute distress, laying comfortably in bed. HEENT: Moist mucous membranes. Neck: No JVD or lymphadenopathy Cardiac: RRR, No murmurs Pulm: Clear to auscultation b/l. No wheezing, rhonchi Abd: NT.Mildly distended. + BS Ext: No edema or cyanosis Labs (see below) Images: CT Neck 02/19/17 IMPRESSION: 1. There is no neck mass or adenopathy. 2. There is a 1.2 cm parenchymal density in the right upper lobe. Please refer to CT of the chest. CT Chest 02/19/17 Impression: 1. 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 2. A solitary enlarged pretracheal mediastinal lymph node measures 22 mm., and a small new irregular subpleural density in the posterior right upper lobe represents change from prior examination. Assessment/Plan 1. 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 Spoke with Dr. Esqiuvel with recommendations for allopurinol 300mg daily, prednisone 60mg daily, monitoring of CMP, LHD, uric acid daily. If unable to disposition for d/c despite prednisone, will need to transfer to [place] for inpatient chemo. 2. Ascites - likely 2/2 #1. s/p paracentesis. PleureX catheter entertained, and thought to be unlikely to be placed per IR as the patient does not a hospice patient. s/p 2 paracentesis. Neutrophils 1,129 on paracentesis - started on short term Abx to cover for possible SBP. 3. Peripheral vascular disease status post stent 4. Constipation resolved- 5. Malnutrition - on TPN as patient is not consistently tolerating diet. 6. ? Dysphasia - will obtain barium swallow. 7. RUL subpleural density - Will need outpt PET scan. DVT prophy: SCDs VS,Fishbone, I+O VS, Fishbone, I+O Laboratory Tests 02/28/17 05:44 Red Blood Count 3.60 L, Mean Corpuscular Volume 94.0, Mean Corpuscular Hemoglobin 32.3, Mean Corpuscular Hemoglobin Concent 34.4, Red Cell Distribution Width 12.7 02/28/17 05:49 Calcium Level 8.8, Aspartate Amino Transf (AST/SGOT) 58 H, Alanine Aminotransferase (ALT/SGPT) 44, Lactate Dehydrogenase 820 H, Alkaline Phosphatase 118 H, Total Bilirubin 0.9, Uric Acid 7.9 H, Total Protein 4.9 L, Albumin 2.0 L Vital Signs Date Time Temp Pulse Resp B/P Pulse Ox O2 Delivery O2 Flow Rate FiO2 02/28/17 06:00 97.3 75 19 107/57 96 Room Air I&O- Last 24 Hours up to 6 AM 02/28/17 06:00 Intake Total 2090 ml Output Total 1050 ml Balance 1040 ml FABIAN RICHARDS MD Feb 28, 2017 11:25
[2017-02-28 14:00] VITALS: BP_SYST 120; BP_SYST 129; BP_DIAS 57; BP_DIAS 69
--- NOTE | 2017-02-28 15:59 | CR ---
DATE OF CONSULTATION: 03/10/2017 SUBJECTIVE: Mr. Silver is on his second day of high-dose prednisone for diffuse large B-cell lymphoma. He is receiving intravenous (IV) fluid continuously somewhere between 1.5 and two liters per day. Serum uric acid was elevated but below eight, currently at 7.9. Should it creep up above eight, we may need to consider rasburicase instead of allopurinol. Electrolytes are stable. No evidence of hyperkalemia or hypermagnesemia. No hypocalcemia. We will need to obtain serum phosphate as part of tumor lysis labs, but overall, he is doing well. At the bedside, he reports having a very good appetite, being comfortable, and having no problems. He wants to go home already. He is a little forgetful of details, asks why he cannot have chemotherapy. I reminded him he started on prednisone. He denies any pain, shortness of breath, cough. He reports having walked in he halls today with assistance. 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 This is a "P" part of [facility]. Because chemotherapy cannot be delivered inpatient at [place], and because of the patient's relative infirmity, we are starting him on the prednisone alone with tumor lysis prophylaxis with allopurinol. He is tolerating this extremely well. PLAN: 1. Continue prednisone 60 mg daily to complete a total of five days. 2. Continue IV fluids, daily uric acid, calcium, potassium, magnesium, and serum phosphate levels. 3. If uric acid trends above eight, we may need to consider rasburicase rather than allopurinol. Otherwise, continue allopurinol 300 mg daily. 4. I will continue to follow daily during this patient's initial attenuated treatment for newly-diagnosed diffuse large B-cell lymphoma with abdominal ascites.
[2017-02-28 22:00] VITALS: BP 118/63
[2017-03-01] MEDS: SODIUM CHLORIDE 0.9% INJ 10 ML SYR IV SCH ×2 (05:23→17:32)
[2017-03-01 05:42] LABS: MEAN CORPUSCULAR HGB CONC 34.8 g/dl (32.0-36.5); MEAN CORPUSCULAR VOLUME 94.8 fl (80.0-96.0); RED CELL DISTRIBUTION WIDTH 12.5 % (11.5-14.5); WHITE BLOOD COUNT 15.7 K/mm3 (4.0-10.0)
[2017-03-01 05:57] LABS: ALBUMIN 2.1 GM/DL (3.2-5.2); ALBUMIN/GLOBULIN RATIO 0.81 (1.00-1.93); BILIRUBIN,TOTAL 0.9 MG/DL (0.2-1.0); CALCIUM LEVEL 8.8 MG/DL (8.8-10.2); CREATININE FOR GFR 1.28 MG/DL (0.70-1.30); GLOMERULAR FILTRATION RATE 56.5 (>35); POTASSIUM SERUM 4.5 MEQ/L (3.5-5.1); TOTAL PROTEIN 4.7 GM/DL (6.4-8.2); URIC ACID 6.9 MG/DL (3.5-7.2)
[2017-03-01 06:00] VITALS: BP 136/65
[2017-03-01 08:29] LABS: MAGNESIUM LEVEL 2.4 MG/DL (1.8-2.4)
[2017-03-01] MEDS: ALLOPURINOL 300 MG TAB PO SCH (09:33)
[2017-03-01] MEDS: MOM 30ML SUSPENSION UDC PO SCH (09:33)
[2017-03-01] MEDS: predniSONE 20 MG TAB PO SCH (09:33)
[2017-03-01] MEDS: PANTOPRAZOLE 40MG TAB (PROTONIX) PO SCH (09:33)
[2017-03-01] MEDS: DOCUSATE SODIUM 100 MG CAP PO SCH ×2 (09:34→20:07)
[2017-03-01] MEDS: SODIUM CHLORIDE 0.9% INJ 10 ML SYR IV PRN (09:35)
[2017-03-01] MEDS: cefTRIAXone SOD 2 GM in D5W MINI-BAG PLUS 50 ML IV SCH (09:36)
--- NOTE | 2017-03-01 13:28 | IPNPDOC ---
Text Note Date of Service The patient was seen on 03/01/17. NOTE Subjective: Ate breakfast this am, and ate half his dinner last night; wants to hold off on TPN. Denies CP/palpations. No N/V/abd pain. Objective: Vitals: (see below) General: No acute distress, laying comfortably in bed. HEENT: Moist mucous membranes. Neck: No JVD or lymphadenopathy Cardiac: RRR, No murmurs Pulm: Clear to auscultation b/l. No wheezing, rhonchi Abd: NT.Mildly distended. + BS Ext: No edema or cyanosis Labs (see below) Images: CT Neck 02/19/17 IMPRESSION: 1. There is no neck mass or adenopathy. 2. There is a 1.2 cm parenchymal density in the right upper lobe. Please refer to CT of the chest. CT Chest 02/19/17 Impression: 1. 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 2. A solitary enlarged pretracheal mediastinal lymph node measures 22 mm., and a small new irregular subpleural density in the posterior right upper lobe represents change from prior examination. Assessment/Plan 1. 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 Spoke with Dr. Esquivel with recommendations for allopurinol 300mg daily, prednisone 60mg daily, monitoring of CMP, LHD, uric acid daily for a total 5 days. If unable to disposition for d/c despite prednisone, will need to transfer to [place] for inpatient chemo. 2. Ascites - likely 2/2 #1. s/p paracentesis. PleureX catheter entertained, and thought to be unlikely to be placed per IR as the patient does not a hospice patient. s/p 2 paracentesis. Neutrophils 1,129 on paracentesis - started on short term Abx to cover for possible SBP. 3. Peripheral vascular disease status post stent 4. Constipation resolved- 5. Malnutrition - on TPN as patient is not consistently tolerating diet. 6. ? Dysphasia - will obtain barium swallow. 7. RUL subpleural density - Will need outpt PET scan. DVT prophy: SCDs VS,Fishbone, I+O VS, Fishbone, I+O Laboratory Tests 03/01/17 05:22 Calcium Level 8.8, Aspartate Amino Transf (AST/SGOT) 91 H, Alanine Aminotransferase (ALT/SGPT) 78, Lactate Dehydrogenase 802 H, Alkaline Phosphatase 124 H, Total Bilirubin 0.9, Uric Acid 6.9, Total Protein 4.7 L, Albumin 2.1 L, Red Blood Count 3.64 L, Mean Corpuscular Volume 94.8, Mean Corpuscular Hemoglobin 33.0, Mean Corpuscular Hemoglobin Concent 34.8, Red Cell Distribution Width 12.5 Vital Signs Date Time Temp Pulse Resp B/P Pulse Ox O2 Delivery O2 Flow Rate FiO2 03/01/17 08:00 Room Air 03/01/17 06:00 97.2 66 18 136/65 95 I&O- Last 24 Hours up to 6 AM 03/01/17 06:00 Intake Total 660 ml Output Total 575 ml Balance 85 ml FBAIAN RICHARDS MD Mar 01, 2017 13:28
[2017-03-01 14:00] VITALS: BP 141/70
--- NOTE | 2017-03-01 15:41 | IPN ---
DATE: 03/01/2017 Mr. Silver is reclining comfortably in bed. His [id number] and niece are in the room. He reports feeling fine, though his appetite is low today. He has not had a bowel movement in several days. Reviewing his labs, the uric acid is now normalized. Electrolytes are within reasonable limits. There is no hyper or hypocalcemia, kaylemia, or magnesemia. Albumin is 2.1. LDH has lowered slightly to 804, alkaline phosphatase 124. Sodium slightly low at 133, but improved versus yesterday. He has leukocytosis consistent with high-dose prednisone. WBC 15, hemoglobin/hematocrit mildly, low platelets normal and predominant neutrophilia, again consistent with high-dose prednisone. Today is day 3 prednisone 1 mg/kg out of 5 scheduled days, as modified treatment for diffuse large B-cell lymphoma, subtype pending. IMPRESSION: Stable on high-dose prednisone. Mr. Silver as was out of bed today with him family walking the halls. He is eating somewhat, not having bowel movements for about 4 days. On exam, abdomen is soft and nontender. Not increased in distension but very mildly distended with some shifting dullness, consistent with some mild to moderate ascites, which has likely reaccumulated somewhat, though not severely bothering him. The source of his anorexia likely is bulky adenopathy. PLAN: 1. At this point I will continue to follow daily. Getting the patient up and walking around is the top priority. Encouraging oral intake and fluids is also a top priority. I note today's BUN 58, creatinine 1.28, suggesting intravascular depletion. He should continue on intravenous (IV) fluid 2-3 liters per day if possible. 2. Overall, if the patient is able to be out of bed, taking adequate nutrition, and has had a bowel movement (BM), he could go home potentially and continue his oncology treatment outpatient. He lives in [facility]. We discussed this today with his family. Diffuse large B-cell lymphoma treatment typically is given on one day IV every 3 weeks. This would be very manageable for him. My plan would be to introduce rituximab first. If he has a response to this and his adenopathy improves, gradually introduced chemotherapy in this 86-year-old gentleman. We would plan mini R-CHOP, a modified regimen of highly successful treatment for diffuse large B-cell lymphoma/ 3. I will continue to follow daily during his hospitalization. TIME STATEMENT: I spent a total of 25 minutes [id number] with the patient and his family, more than 50% involving counseling and coordination of care described above.
[2017-03-01 22:00] VITALS: BP 115/57
[2017-03-02] MEDS: SODIUM CHLORIDE 0.9% INJ 10 ML SYR IV SCH ×2 (05:07→17:12)
[2017-03-02 05:28] LABS: MEAN CORPUSCULAR HEMOGLOBIN 32.3 pg (27.0-33.0); MEAN CORPUSCULAR HGB CONC 33.9 g/dl (32.0-36.5); MEAN CORPUSCULAR VOLUME 95.4 fl (80.0-96.0); RED CELL DISTRIBUTION WIDTH 12.8 % (11.5-14.5)
[2017-03-02 05:38] LABS: URIC ACID 6.3 MG/DL (3.5-7.2)
[2017-03-02 05:40] LABS: ALBUMIN 2.1 GM/DL (3.2-5.2); ALBUMIN/GLOBULIN RATIO 0.78 (1.00-1.93); BILIRUBIN,TOTAL 0.6 MG/DL (0.2-1.0); CALCIUM LEVEL 8.2 MG/DL (8.8-10.2); CREATININE FOR GFR 1.27 MG/DL (0.70-1.30); MAGNESIUM LEVEL 2.5 MG/DL (1.8-2.4); POTASSIUM SERUM 4.3 MEQ/L (3.5-5.1); TOTAL PROTEIN 4.8 GM/DL (6.4-8.2)
[2017-03-02 06:00] VITALS: BP 127/63
[2017-03-02] MEDS: MOM 30ML SUSPENSION UDC PO SCH (09:07)
[2017-03-02] MEDS: ALLOPURINOL 300 MG TAB PO SCH (09:08)
[2017-03-02] MEDS: DOCUSATE SODIUM 100 MG CAP PO SCH ×2 (09:08→19:49)
[2017-03-02] MEDS: predniSONE 20 MG TAB PO SCH (09:08)
[2017-03-02] MEDS: PANTOPRAZOLE 40MG TAB (PROTONIX) PO SCH (09:08)
[2017-03-02] MEDS: cefTRIAXone SOD 2 GM in D5W MINI-BAG PLUS 50 ML IV SCH (09:09)
[2017-03-02] MEDS: NS 1,000 ML IV SCH ×2 (09:09→19:49)
--- NOTE | 2017-03-02 11:51 | IPNPDOC ---
Text Note Date of Service The patient was seen on 03/02/17. NOTE Subjective: Ate 90% breakfast this am, and ate most of his dinner last night; wants to hold off on TPN. Objective: Vitals: (see below) General: No acute distress, laying comfortably in bed. HEENT: Moist mucous membranes. Neck: No JVD or lymphadenopathy Cardiac: RRR, No murmurs Pulm: Clear to auscultation b/l. No wheezing, rhonchi Abd: NT.Mildly distended. + BS Ext: No edema or cyanosis Labs (see below) Images: CT Neck 02/19/17 IMPRESSION: 1. There is no neck mass or adenopathy. 2. There is a 1.2 cm parenchymal density in the right upper lobe. Please refer to CT of the chest. CT Chest 02/19/17 Impression: 1. 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 2. A solitary enlarged pretracheal mediastinal lymph node measures 22 mm., and a small new irregular subpleural density in the posterior right upper lobe represents change from prior examination. Assessment/Plan 1. 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 Spoke with Dr. Esquivel with recommendations for allopurinol 300mg daily, prednisone 60mg daily, monitoring of CMP, LHD, uric acid daily for a total 5 days. If unable to disposition for d/c despite prednisone, will need to transfer to [place] for inpatient chemo. IV fluids normal saline 2 L daily. 2. Ascites - likely 2/2 #1. s/p paracentesis. PleureX catheter entertained, and thought to be unlikely to be placed per IR as the patient does not a hospice patient. s/p 2 paracentesis. Neutrophils 1,129 on paracentesis - started on short term Abx to cover for possible SBP. 3. Dehydration- started on IV fluids 3. Peripheral vascular disease status post stent 4. Constipation - on milk of magnesia, Colace. We will try magnesium citrate. 5. Malnutrition -off TPN. Tolerating a diet. 6. ? Dysphasia - resolved. 7. RUL subpleural density - Will need outpt PET scan. DVT prophy: SCDs VS,Fishbone, I+O VS, Fishbone, I+O Laboratory Tests 03/02/17 05:15 Calcium Level 8.2 L, Aspartate Amino Transf (AST/SGOT) 66 H, Alanine Aminotransferase (ALT/SGPT) 75, Alkaline Phosphatase 112, Total Bilirubin 0.6, Total Protein 4.8 L, Albumin 2.1 L, Red Blood Count 3.60 L, Mean Corpuscular Volume 95.4, Mean Corpuscular Hemoglobin 32.3, Mean Corpuscular Hemoglobin Concent 33.9, Red Cell Distribution Width 12.8 Vital Signs Date Time Temp Pulse Resp B/P Pulse Ox O2 Delivery O2 Flow Rate FiO2 03/02/17 07:50 Room Air 03/02/17 06:00 98.3 60 19 127/63 94 I&O- Last 24 Hours up to 6 AM 03/02/17 06:00 Intake Total 1430 ml Output Total 0 ml Balance 1430 ml FABIAN RICHARDS MD Mar 02, 2017 11:51
[2017-03-02] MEDS ORDERED: MAGNESIUM CITRATE 300 ML BTL PO ONE (12:00)
[2017-03-02 14:00] VITALS: BP 123/58
[2017-03-02] MEDS ORDERED: FLEET ENEMA PR PRN (15:15)
--- NOTE | 2017-03-02 15:27 | IPN ---
DATE: 03/02/2017 MEDICAL ONCOLOGY INPATIENT FOLLOWUP SUBJECTIVE: Mr. Silver is reclining in bed. He ate a hamm breakfast but did not have much lunch. He says this is his usual pattern. He denies abdominal pain. He has continued no bowel movement (BM) though denies any abdominal discomfort or bloating. OBJECTIVE: On exam, his belly remains soft, minimally softly distended, nontender, no rebound, no palpable mass. LABORATORY DATA: Electrolytes are overall stable, sodium slightly low 132, magnesium slightly elevated 2.5, uric acid 6.3, lactate dehydrogenase up again 902, but not dangerously high. Albumin remains low 2.1. Total parenteral nutrition (TPN) was stopped. Hydration resumed. I have spoken with Dr. Rendon about the importance of continuing at least two liters a day hydration for this patient. We note that blood urea nitrogen (BUN) remains elevated, indicating intravascular depletion. Also, a Fleet enema is planned. IMPRESSION: Mr. Molina Silver is an 86-year-old man with mesenteric adenopathy, some lung nodules of uncertain etiology, biopsy of the mesenteric adenopathy positive for diffuse large B-cell lymphoma. Because of his advanced age and comorbidities, we have started him on high-dose prednisone alone, the "P" part of [facility]. He is ambulating daily, beginning to eat again more normally. Once he is able to have a bowel movement and has a performance status adequate for discharge, he should go home and followup in medical oncology as soon as possible, that is within one day if possible to be started this coming week on rituximab. We will hopefully have final histologic diagnosis of his large B-cell lymphoma by that point. So far he has tolerated the prednisone well, evidence of some tumor lysis on rising lactate dehydrogenase (LDH) and uric acid, but this is well under control with allopurinol 300 mg by mouth daily. PLAN 1. Continue hydration, continue oral prednisone 60 mg a day, the last and final dose tomorrow Friday. 2. As soon as patient discharges, followup within 24 hours in medical oncology. For assistance in making sure this appointment is made, please call Sarahi Gonzalez, oncology nurse navigator at [phone].
[2017-03-02] MEDS ORDERED: FLEET ENEMA PR ONE (15:30)
[2017-03-02 22:00] VITALS: BP 122/57
[2017-03-03] MEDS: SODIUM CHLORIDE 0.9% INJ 10 ML SYR IV SCH (05:30)
[2017-03-03 06:00] VITALS: BP 118/57
[2017-03-03 06:08] LABS: MEAN CORPUSCULAR HEMOGLOBIN 32.3 pg (27.0-33.0); MEAN CORPUSCULAR HGB CONC 33.3 g/dl (32.0-36.5); MEAN CORPUSCULAR VOLUME 96.9 fl (80.0-96.0); RED CELL DISTRIBUTION WIDTH 13.1 % (11.5-14.5); WHITE BLOOD COUNT 11.4 K/mm3 (4.0-10.0)
[2017-03-03 06:10] LABS: ALBUMIN/GLOBULIN RATIO 0.74 (1.00-1.93); BILIRUBIN,TOTAL 0.5 MG/DL (0.2-1.0); CREATININE FOR GFR 1.24 MG/DL (0.70-1.30); GLOMERULAR FILTRATION RATE 58.6 (>35); MAGNESIUM LEVEL 2.5 MG/DL (1.8-2.4); POTASSIUM SERUM 4.3 MEQ/L (3.5-5.1); TOTAL PROTEIN 4.7 GM/DL (6.4-8.2); URIC ACID 5.1 MG/DL (3.5-7.2)
[2017-03-03] MEDS ORDERED: NS 1,500 ML IV SCH (08:30)
[2017-03-03] MEDS: predniSONE 20 MG TAB PO SCH (08:44)
[2017-03-03] MEDS: cefTRIAXone SOD 2 GM in D5W MINI-BAG PLUS 50 ML IV SCH (08:45)
[2017-03-03] MEDS: PANTOPRAZOLE 40MG TAB (PROTONIX) PO SCH (08:45)
[2017-03-03] MEDS: MOM 30ML SUSPENSION UDC PO SCH (08:45)
[2017-03-03] MEDS: DOCUSATE SODIUM 100 MG CAP PO SCH (08:45)
[2017-03-03] MEDS: ALLOPURINOL 300 MG TAB PO SCH (08:45)
--- NOTE | 2017-03-03 09:16 | IPN ---
DATE: 03/03/2017 MEDICAL ONCOLOGY INPATIENT FOLLOWUP Mr. Silver is reclining in bed this morning. He had just eaten breakfast. He reports feeling well. He had a bowel movement yesterday. Vital signs today are stable. Labs also stable. WBC 11, hemoglobin/hematocrit 11/and 34, platelets normal, and electrolytes now mostly normal. Magnesium very slightly above normal at 2.8 and corrected for albumin. Calcium is also normal. Lactate dehydrogenase has dropped down to 781. Today is the fifth and final day of high-dose prednisone. If Mr. Silver is feeling well enough and the hospitalist team feels he is able to go home, he could from the oncology standpoint be discharged, with a request that he have rapid followup in the oncology office within a day or two. Sarahi Gonzalez, our oncology nurse navigator, can coordinate this. Her number . Please call her to make sure Mr. Silver has an appointment early this week. He does continue to have some mild soft, nontender, abdominal distention, likely from ascites. The big question is whether he needs another paracentesis before discharging. This might be a reasonable approach. Meanwhile, I will continue to follow him daily during his inpatient stay. Otherwise, his labs are looking good. He should continue on allopurinol even after prednisone is discontinued. IMPRESSION: 86-year-old man with mesenteric diffuse large B-cell lymphoma and ascites status post two paracenteses with clinical evidence of some recurrence though no longer with active dysphagia, currently now having had a bowel movement (BM) and taking by mouth (p.o.). Electrolytes are stable. Today is day 5 of 5 of prednisone 1 mg/kg. RECOMMENDATIONS: 1. Continue allopurinol indefinitely. 2. Consider final paracentesis before discharge. 3. Please plan for early oncology outpatient followup, with help for coordinating this call Sarahi Gonzalez [phone]. 4. I will continue to follow while the patient is inpatient.
[2017-03-03] MEDS ORDERED: COLA100C3 PO (11:37)
[2017-03-03] MEDS ORDERED: ALLO15TA PO (11:37)
[2017-03-03] MEDS ORDERED: PEG1POW PO (11:37)
[2017-03-03] MEDS ORDERED: PANT40TA2 PO (13:54)
--- NOTE | 2017-03-03 16:15 | DS.PDOC ---
Discharge Summary General Date of Admission Feb 19, 2017 at 10:52 Date of Discharge 03/03/17 Attending Physician: FABIAN RICHARDS MD Specialist/Consultants Involve: Ankita Esquivel MD Discharge Summary PROCEDURES PERFORMED DURING STAY: None. ADMITTING/DISCHARGE DIAGNOSES: 1. Aggressive B-cell lymphoma 2. Ascites - s/p 2 paracentesis 3. Peripheral vascular disease status post stent 4. Constipation, resolved 5. RUL subpleural density - will need oupt PET scan COMPLICATIONS/CHIEF COMPLAINT: Ascites. HISTORY OF PRESENT ILLNESS/HOSPITAL COURSE: This is a 86-year-old male past history of peripheral vascular disease who presents with decreased appetite and increased abdominal distention. Patient was seen by his primary care physician, and sent to the emergency department. Patient then had a CT of his abdomen and pelvis done which showed ascites, mesentery adenopathy surrounding the superior mesenteric artery with the ingestion of the lymphoma versus metastatic disease. The patient had 2 paracenteses during this hospitalization, and given his malnutrition was placed on TPN. During the course of his hospitalization patient tolerated therapy well and his appetite had increased afterwards the TPN was stopped. The patient also had a biopsy, which noted aggressive B-cell lymphoma, for which patient was placed on prednisone 60 mg for 5 days. Patient was being followed by Dr. Esquivel wall hospitalized and will be following with her in 2 days for chemotherapy. Patient does have a poor prognosis, however would like to be aggressive with management and follow-up with Dr. Esquivel for chemotherapy. DISCHARGE MEDICATIONS: Please see below. ALLERGIES: Please see below. PHYSICAL EXAMINATION ON DISCHARGE: Vitals: (see below) General: No acute distress, laying comfortably in bed. HEENT: Moist mucous membranes. Neck: No JVD or lymphadenopathy Cardiac: RRR, No murmurs Pulm: Clear to auscultation b/l. No wheezing, rhonchi Abd: NT.Mildly distended. + BS Ext: No edema or cyanosis LABORATORY DATA: Please see below. IMAGING: CT Neck 02/19/17 IMPRESSION: 1. There is no neck mass or adenopathy. 2. There is a 1.2 cm parenchymal density in the right upper lobe. Please refer to CT of the chest. CT Chest 02/19/17 Impression: 1. 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 2. A solitary enlarged pretracheal mediastinal lymph node measures 22 mm., and a small new irregular subpleural density in the posterior right upper lobe represents change from prior examination. PROGNOSIS: Poor given aggressive B-cell lymphoma diagnosis. ACTIVITY: As tolerated. DIET: As tolerated DISCHARGE PLAN/DISPOSITION: 01 Home, Self-Care. DISCHARGE INSTRUCTIONS: 1. Follow-up with PCP in 1 week. Follow-up with Dr. Esquivel in 2 days. DISCHARGE CONDITION: Stable. TIME SPENT ON DISCHARGE: Greater than 30 minutes. Vital Signs/I&Os Vital Signs Date Time Temp Pulse Resp B/P Pulse Ox O2 Delivery O2 Flow Rate FiO2 03/03/17 09:00 Room Air 03/03/17 06:00 97.0 62 18 118/57 96 I&O- Last 24 Hours up to 6 AM 03/03/17 05:59 Intake Total 2660 ml Output Total 500 ml Balance 2160 ml Laboratory Data Labs 24H Laboratory Tests 2 03/03/17 05:36: Blood Urea Nitrogen 51H, Creatinine 1.24, Sodium Level 136, Potassium Level 4.3 , Chloride Level 101, Carbon Dioxide Level 26, Calcium Level 8.0L, Aspartate Amino Transf (AST/SGOT) 59H, Alanine Aminotransferase (ALT/SGPT) 72, Lactate Dehydrogenase 781H, Alkaline Phosphatase 112, Total Bilirubin 0.5, Uric Acid 5.1 , Total Protein 4.7L, Albumin 2.0L, Albumin/Globulin Ratio 0.74L, Anion Gap 9, Glomerular Filtration Rate 58.6, Magnesium Level 2.5H CBC/BMP Laboratory Tests 03/03/17 05:36 Calcium Level 8.0 L, Aspartate Amino Transf (AST/SGOT) 59 H, Alanine Aminotransferase (ALT/SGPT) 72, Lactate Dehydrogenase 781 H, Alkaline Phosphatase 112, Total Bilirubin 0.5, Uric Acid 5.1, Total Protein 4.7 L, Albumin 2.0 L, Red Blood Count 3.51 L, Mean Corpuscular Volume 96.9 H, Mean Corpuscular Hemoglobin 32.3, Mean Corpuscular Hemoglobin Concent 33.3, Red Cell Distribution Width 13.1 Microbiology Microbiology 02/26/17 Gram Stain - Final, Complete 02/26/17 Body Fluid Culture - Final, Complete Discharge Medications Scheduled Allopurinol (Allopurinol) 150 Mg Halftab 300 MG PO DAILY Aspirin (Aspirin 81) 81 Mg Tab 81 MG PO DAILY (Reported) Cholecalciferol (Vitamin D3) 1,000 Unit Tab 1,000 UNIT PO DAILY (Reported) Docusate Sodium (Colace) 100 Mg Cap 100 MG PO BID Pantoprazole Sodium (Pantoprazole Sodium) 40 Mg Tab 40 MG PO DAILY Scheduled PRN Polyethylene Glycol (Peg 3350) 1 Pkt Pow 1 PKT PO DAILYPRN PRN PRN CONSTIPATION Allergies Coded Allergies: No Known Drug Allergy (Verified Allergy, Unknown, 02/25/13) FABIAN RICHARDS MD Mar 03, 2017 16:15
== END 2017-03-03 15:01 | disposition home or self-care (01) | DRG 948 ==
LOC: M MSPAV 10:52
PROVIDERS: ADMIT Hospitalist; ATTEND Internal Medicine
PROC: 0W9G3ZZ Drainage of Peritoneal Cavity, Percutaneous Approach (ICD-10-PCS; principal; 2017-02-19)
PROC: 0W9G3ZZ Drainage of Peritoneal Cavity, Percutaneous Approach (ICD-10-PCS; 2017-02-19)
PROC: 02HV33Z Insertion of Infusion Device into Superior Vena Cava, Percutaneous Approach (ICD-10-PCS; 2017-02-19)
PROC: 0DB64ZX Excision of Stomach, Percutaneous Endoscopic Approach, Diagnostic (ICD-10-PCS; 2017-02-21)
PROC: 0W9G3ZZ Drainage of Peritoneal Cavity, Percutaneous Approach (ICD-10-PCS; 2017-02-26)
DX: R18.8 Other ascites (principal); C83.33 Diffuse large B-cell lymphoma, intra-abdominal lymph nodes; E46 Unspecified protein-calorie malnutrition; I73.9 Peripheral vascular disease, unspecified; K59.00 Constipation, unspecified; F17.210 Nicotine dependence, cigarettes, uncomplicated; R91.1 Solitary pulmonary nodule; R59.0 Localized enlarged lymph nodes; J30.9 Allergic rhinitis, unspecified; E78.00 Pure hypercholesterolemia, unspecified; H90.5 Unspecified sensorineural hearing loss; E55.9 Vitamin D deficiency, unspecified; Z95.9 Presence of cardiac and vascular implant and graft, unspecified; Z79.82 Long term (current) use of aspirin; Z85.51 Personal history of malignant neoplasm of bladder; Z79.899 Other long term (current) drug therapy; R06.02 Shortness of breath; R11.0 Nausea

== ENCOUNTER → 2017-03-05 | Outpatient (REF) | payer MEDICARE, BC ==
[~2017-03-05] MED LIST changes: +ALLO15TA PO; +COLA100C3 PO; +PANT40TA2 PO; +PEG1POW PO; +VITA-122 PO
== END ==
LOC: M LAB REF 17:14
PROVIDERS: ATTEND Internal Medicine Medical Oncology
DX: C85.90 Non-Hodgkin lymphoma, unspecified, unspecified site (principal)

== ENCOUNTER → 2017-03-13 | Outpatient (REF) | payer MEDICARE, BC ==
[2017-03-13 18:00] LABS: MAGNESIUM LEVEL 1.9 MG/DL (1.8-2.4); URIC ACID 5.4 MG/DL (3.5-7.2)
== END ==
LOC: M LAB REF 16:32
PROVIDERS: ATTEND Internal Medicine Medical Oncology
DX: C85.10 Unspecified B-cell lymphoma, unspecified site (principal)

== ENCOUNTER → 2017-03-18 | Outpatient (REF) | payer MEDICARE, BC | LOC: M LAB REF 12:28 | PROVIDERS: ATTEND Internal Medicine Medical Oncology | DX: C67.9 Malignant neoplasm of bladder, unspecified (principal) ==

== ENCOUNTER → 2017-03-25 | Outpatient (REF) | payer MEDICARE, BC | LOC: M LAB REF 12:20 | PROVIDERS: ATTEND Internal Medicine Medical Oncology | DX: C85.10 Unspecified B-cell lymphoma, unspecified site (principal) ==

== ENCOUNTER → 2017-04-03 | Outpatient (REF) | payer MEDICARE, BC | LOC: M LAB REF 12:31 | PROVIDERS: ATTEND Internal Medicine Medical Oncology | DX: C85.90 Non-Hodgkin lymphoma, unspecified, unspecified site (principal) ==

== ENCOUNTER → 2017-06-12 | Outpatient (CLI) | payer MEDICARE, BC ==
[~2017-06-12] MED LIST changes: -COLA100C3 PO; +COLA100C5 PO; +GASTROGRAFIN SOLUTION 30ML (Q9963) As Ordered ONE; +ISOVUE-370 76% 100ML VIAL (Q9967) As Ordered ONE
--- NOTE | 2017-06-12 13:57 | REP ---
CT of the chest with IV contrast: Comparisons are 02/19/2017, 2012. The studies performed for restaging of lymphoma. Additionally, note the patient has history of bladder carcinoma. The patient indicates he has had appendectomy. There is a spiculated pleural-based nodule posterolaterally in the right upper lobe on image 37, unchanged from 02/19/2017 but increased in size and density from 12/18/2012. There is a 2.4 cm solid pleural-based nodule in the medial basilar segment right lower lobe. This is unchanged from 02/19/2017. On 12/18/2012 this measured 2.0 cm. There is a 8 mm solid nodule posteriorly in the left lower lobe on image 77. This measured 6 mm on 12/18/2012. On 02/19/2017 this measured 10 mm and at a cavitary center. The cavitary center is no longer present. The thoracic aorta is unremarkable except for calcified atheroma. The cardiac size is upper normal. On 02/19/2070 there was enlarged mediastinal azygos node measuring 2.3 cm. This nodule measured 0.8 cm on 12/18/2012 and measures 0.7 cm short axis today. There is no mediastinal adenopathy. There is no hilar adenopathy. There is no axillary adenopathy. There are no acute infiltrates or effusions. Impression: Lung nodules as described. No new lung nodules are identified. Calcific pleural plaque and chronic pleural thickening bilaterally, unchanged. There is chronic pleural thickening and calcific pleural plaque bilaterally, not significantly changed from 12/18/2012. The mediastinal azygos node has decreased size as described. There is no adenopathy otherwise. There are no acute infiltrates or effusions. There is chronic parenchymal scarring in the right lower lobe. Signed by Oscar Lauren MD 06/12/2017 01:49 P
--- NOTE | 2017-06-12 14:06 | REP ---
CT abdomen and pelvis without and with IV contrast and with bowel contrast: Comparisons are 12/18/2012 and 01/18/2017. The large blood bulky mesenteric adenopathy identified in the mid abdomen on 02/15/2017 has decreased in size. No retroperitoneal adenopathy is identified, as previously. The abdominal ascites identified on 02/15/2017 has resolved. The liver and spleen are normal size. The liver and spleen are homogeneous. The gallbladder, pancreas are unremarkable. The adrenals and kidneys are unremarkable except for several renal cortical cysts, not significantly changed. The abdominal aorta is unremarkable except for calcified atheroma. There is no bowel distension. Pelvis: There is no pelvic adenopathy. No ascites. The bladder is unremarkable. The pelvic bowel loops are unremarkable. There is advanced degenerative disc disease in the lumbar spine L4-5 and L5 S1. No lytic, blastic or destructive skeletal changes are identified. Impression: The mesenteric lymphadenopathy has decreased in size. The ascites has resolved. There is no retroperitoneal adenopathy, as previously. There are bilateral renal cortical cysts, unchanged. Signed by Oscar Lauren MD 06/12/2017 01:57 P
--- NOTE | 2017-06-12 14:22 | REP ---
CT NECK WITH CONTRAST: HISTORY: Lymphoma. CONTRAST: Isovue 370, 100 mL. COMPARISON: 02/19/2017. The naso-, leonor-, and hypopharynx, larynx and subglottic trachea are normal in appearance. The salivary and thyroid glands are normal in size and density. Small lymph nodes less than 1 cm in size are present in the internal jugular chains, posterior triangles, submandibular and submental areas. Atherosclerotic calcification is present at the carotid bifurcations. Degenerative change is present in the cervical spine. A small ill-defined parenchymal density is present in the right upper lobe. This is incompletely seen in this examination. The visualized sinuses are clear. IMPRESSION: There is no neck mass or adenopathy. Signed by Willie Olivas MD 06/12/2017 02:31 P
== END ==
LOC: M RAD 10:52
PROVIDERS: ATTEND Internal Medicine Medical Oncology
DX: C85.90 Non-Hodgkin lymphoma, unspecified, unspecified site (principal); M51.36 Other intervertebral disc degeneration, lumbar region; M51.37 Other intervertebral disc degeneration, lumbosacral region; N28.1 Cyst of kidney, acquired
CPT/HCPCS: 70491; 71260; 74178; Q9963; Q9967

== ENCOUNTER → 2017-06-24 | Outpatient (CLI) | payer MEDICARE, BC ==
[~2017-06-24] MED LIST changes: -GASTROGRAFIN SOLUTION 30ML (Q9963) As Ordered ONE; -ISOVUE-370 76% 100ML VIAL (Q9967) As Ordered ONE
--- NOTE | 2017-07-01 14:09 | REP ---
Whole body PET CT scan: Comparisons 06/12/2016. Whole-body PET CT scan is performed from skull base to the upper thighs. Neck and supraclavicular areas: There are no hypermetabolic foci. This is unchanged. Chest: There is a pleural-based nodule posterolaterally in the right upper lobe with a standard uptake value of 3.5 (3.5 previously) measuring approximate 1.5 centimeters, not significantly changed. The infiltrate-like density in the right lower lobe is unchanged in size. There is non hypermetabolic uptake with a standard uptake value of 1.6 (2.1 previously). There is uptake in a normal size left hilar node with the maximal standard uptake value of 2.7. In retrospect this was also present previously with a maximum standard uptake value of 3.3. There are no other hypermetabolic foci in the chest. Abdomen, pelvis and upper thighs: The confluent antonia mass in the mesentery has decreased in size and there are now calcifications within this mass. The radiolabeling has significantly decreased. The standard uptake value today maximally measures 2.2 (previously 9.9). There are no other hypermetabolic foci in the abdomen, pelvis or upper thighs. There is radiolabeling of the vertebral bodies, sternum and femoral shafts , compatible with marrow stimulation. The study is performed with 10 mCi of F 18 FDG Signed by Oscar Lauren MD 07/01/2017 02:01 P
== END ==
LOC: M PLARAD 15:47
PROVIDERS: ATTEND Internal Medicine Medical Oncology
DX: C83.30 Diffuse large B-cell lymphoma, unspecified site (principal)
CPT/HCPCS: 78815; A9552

== ENCOUNTER → 2017-11-27 | Outpatient (CLI) | payer MEDICARE, BC | LOC: M RAD 09:15 | DX: I70.213 Atherosclerosis of native arteries of extremities with intermittent claudication, bilateral legs (principal) | CPT/HCPCS: 93925 ==

== ENCOUNTER 2018-02-06 16:08 | Inpatient (IN) | payer MEDICARE, BC ==
[2018-02-06] MEDS: NS 500 ML IV (17:14)
[2018-02-06 17:21] LABS: BASO % 0.2 % (0.0-1.0); EOS % 0.1 % (0.0-3.0); HEMATOCRIT 41.2 % (42.0-52.0); HEMOGLOBIN 14.2 g/dl (14.0-18.0); IMMATURE GRANULOCYTE % 0.4 % (0-3.0); LYMPH # 0.5 10^3/uL (1.5-4.5); LYMPH % 4.8 % (24.0-44.0); MEAN CORPUSCULAR HEMOGLOBIN 33.3 pg (27.0-33.0); MEAN CORPUSCULAR HGB CONC 34.5 g/dl (32.0-36.5); MEAN CORPUSCULAR VOLUME 96.7 fl (80.0-96.0); MONO # 1.3 10^3/uL (0.0-0.8); MONO % 11.7 % (0.0-5.0); NEUTROPHILS # 9.3 10^3/uL (1.8-7.7); NEUTROPHILS % 82.8 % (36.0-66.0); PLATELET COUNT, AUTOMATED 307 10^3/uL (150-450); RED BLOOD COUNT 4.26 10^6/uL (4.30-6.10); RED CELL DISTRIBUTION WIDTH 14.5 % (11.5-14.5); WHITE BLOOD COUNT 11.2 10^3/uL (4.0-10.0)
[2018-02-06 17:24] LABS: INR 1.02; PARTIAL THROMBOPLASTIN TIME 26.8 SECONDS (26.8-37.9); PROTHROMBIN TIME 13.5 SECONDS (12.4-14.5)
[2018-02-06 17:46] LABS: ALBUMIN/GLOBULIN RATIO 0.94 (1.00-1.93); ALKALINE PHOSPHATASE 159 U/L (45-117); ALT/SGPT 28 U/L (12-78); ANION GAP 11 MEQ/L (8-16); AST/SGOT 88 U/L (7-37); BILIRUBIN,DIRECT 0.5 MG/DL (0.0-0.2); BLOOD UREA NITROGEN 55 MG/DL (7-18); CALCIUM LEVEL 13.1 MG/DL (8.8-10.2); CARBON DIOXIDE LEVEL 25 MEQ/L (21-32); CHLORIDE LEVEL 98 MEQ/L (98-107); CREATININE FOR GFR 2.51 MG/DL (0.70-1.30); GLOMERULAR FILTRATION RATE 25.9 (>35); GLUCOSE, FASTING 110 MG/DL (70-100); POTASSIUM SERUM 4.7 MEQ/L (3.5-5.1); SODIUM LEVEL 134 MEQ/L (136-145); TOTAL PROTEIN 6.2 GM/DL (6.4-8.2)
[2018-02-06] MEDS: NS 1,000 ML IV (18:00)
[2018-02-06] MEDS ORDERED: BISACODYL 10 MG SUPP PR (20:15)
[2018-02-06] MEDS ORDERED: MOM 30ML SUSPENSION UDC PO (20:15)
[2018-02-06] MEDS: HEPARIN SOD (PORCINE) 5000 UNITS/ML VIAL SC (20:49)
[2018-02-06] MEDS: LR 1,000 ML IV (20:49)
[2018-02-06] MEDS: SENOKOT S TAB PO (20:49)
[2018-02-07] MEDS: LR 1,000 ML IV ×3 (05:58→22:33)
[2018-02-07 06:42] LABS: HEMATOCRIT 38.5 % (42.0-52.0); HEMOGLOBIN 12.9 g/dl (14.0-18.0); MEAN CORPUSCULAR HEMOGLOBIN 32.6 pg (27.0-33.0); MEAN CORPUSCULAR HGB CONC 33.5 g/dl (32.0-36.5); MEAN CORPUSCULAR VOLUME 97.2 fl (80.0-96.0); PLATELET COUNT, AUTOMATED 245 10^3/uL (150-450); RED BLOOD COUNT 3.96 10^6/uL (4.30-6.10); RED CELL DISTRIBUTION WIDTH 14.6 % (11.5-14.5); WHITE BLOOD COUNT 8.6 10^3/uL (4.0-10.0)
[2018-02-07 07:03] LABS: ALBUMIN 2.6 GM/DL (3.2-5.2); ALKALINE PHOSPHATASE 152 U/L (45-117); ALT/SGPT 21 U/L (12-78); ANION GAP 13 MEQ/L (8-16); AST/SGOT 74 U/L (7-37); BILIRUBIN,TOTAL 0.9 MG/DL (0.2-1.0); BLOOD UREA NITROGEN 56 MG/DL (7-18); CALCIUM LEVEL 11.9 MG/DL (8.8-10.2); CARBON DIOXIDE LEVEL 21 MEQ/L (21-32); CHLORIDE LEVEL 104 MEQ/L (98-107); GLOMERULAR FILTRATION RATE 30.2 (>35); GLUCOSE, FASTING 88 MG/DL (70-100); POTASSIUM SERUM 4.6 MEQ/L (3.5-5.1); SODIUM LEVEL 138 MEQ/L (136-145); TOTAL PROTEIN 5.2 GM/DL (6.4-8.2)
[2018-02-07 07:46] LABS: PREALBUMIN 10.3 MG/DL (20.0-40.0)
[2018-02-07] MEDS: HEPARIN SOD (PORCINE) 5000 UNITS/ML VIAL SC ×2 (08:27→22:32)
[2018-02-07] MEDS: SENOKOT S TAB PO ×2 (08:27→22:32)
[2018-02-07] MEDS: ASPIRIN 81 MG ENTERIC TAB PO (08:27)
[2018-02-07 09:54] LABS: APPEARANCE, URINE HAZY (CLEAR); BACTERIA, URINE AUTO NEGATIVE (NEGATIVE); BILIRUBIN, URINE AUTO NEGATIVE (NEGATIVE); BLOOD, URINE BLOOD NEGATIVE (NEGATIVE); CALCIUM OXALATE CRYSTALS SMALL; COLOR, URINE AMBER (YELLOW); GLUCOSE, URINE (UA) AUTO NEGATIVE (NEGATIVE); KETONE, URINE AUTO NEGATIVE (NEGATIVE); LEUKOCYTE ESTERASE, URINE AUTO NEGATIVE (NEGATIVE); MUCUS, URINE SMALL (NEGATIVE); NITRITE, URINE AUTO NEGATIVE (NEGATIVE); PROTEIN, URINE AUTO NEGATIVE (NEGATIVE); RBC, URINE AUTO 43 /HPF (0-3); SQUAMOUS EPITHELIAL CELL UR AU 0 /HPF (0-6); WBC, URINE AUTO 4 /HPF (0-3)
[2018-02-07 10:17] LABS: CHLORIDE,RANDOM URINE 15 MEQ/L; POTASSIUM RANDOM URINE 57.8 MEQ/L; SODIUM,RANDOM URINE 20 MEQ/L; TOTAL PROTEIN,RANDOM URINE 57.3 MG/DL (0.0-12.0)
[2018-02-07 10:37] LABS: OSMOLALITY URINE 583 MOSM/KG (500-800)
[2018-02-07 13:14] LABS: SPEC. GRAVITY BODY FLUIDS 1.019 (NOT ESTABLISHED)
[2018-02-07 13:19] LABS: BF MONONUCLEAR CELL % 86.9 % (0-0); BF POLYMORPHONUCLEAR CELL % 13.1 % (0-0); RBC BODY FLUID 3 10^3/uL (<2); SOURCE, BODY FLUID ASCITES; WBC BODY FLUID 4515 /uL (0-10)
[2018-02-07 13:20] LABS: APPEARANCE, BODY FLUID HAZY (CLEAR); ASCITES FL COLOR YELLOW (COLORLESS); BF DIFF IF INDICATED? YES (NO)
[2018-02-07 13:30] LABS: SOURCE, BODY FLUID ALBUMIN ASCITES; SOURCE, BODY FLUID GLUCOSE ASCITES; SOURCE, BODY FLUID TOT PROTEIN ASCITES; TOTAL PROTEIN, BODY FLUID 2.5 G/DL (NOT ESTABLISHED)
[2018-02-07] MEDS: MIRALAX *UNIT DOSE* 17GM PACKET PO (18:06)
[2018-02-08 06:26] LABS: HEMATOCRIT 37.5 % (42.0-52.0); HEMOGLOBIN 12.8 g/dl (14.0-18.0); MEAN CORPUSCULAR HEMOGLOBIN 32.8 pg (27.0-33.0); MEAN CORPUSCULAR HGB CONC 34.1 g/dl (32.0-36.5); MEAN CORPUSCULAR VOLUME 96.2 fl (80.0-96.0); PLATELET COUNT, AUTOMATED 264 10^3/uL (150-450); RED CELL DISTRIBUTION WIDTH 14.5 % (11.5-14.5); WHITE BLOOD COUNT 9.2 10^3/uL (4.0-10.0)
[2018-02-08 06:49] LABS: ALBUMIN 2.2 GM/DL (3.2-5.2); ALBUMIN/GLOBULIN RATIO 0.81 (1.00-1.93); ALKALINE PHOSPHATASE 135 U/L (45-117); ALT/SGPT 21 U/L (12-78); ANION GAP 10 MEQ/L (8-16); AST/SGOT 70 U/L (7-37); BLOOD UREA NITROGEN 55 MG/DL (7-18); CALCIUM LEVEL 11.5 MG/DL (8.8-10.2); CARBON DIOXIDE LEVEL 23 MEQ/L (21-32); CHLORIDE LEVEL 103 MEQ/L (98-107); CREATININE FOR GFR 1.94 MG/DL (0.70-1.30); GLOMERULAR FILTRATION RATE 34.9 (>35); GLUCOSE, FASTING 74 MG/DL (70-100); POTASSIUM SERUM 4.7 MEQ/L (3.5-5.1); SODIUM LEVEL 136 MEQ/L (136-145); TOTAL PROTEIN 4.9 GM/DL (6.4-8.2)
[2018-02-08] MEDS: SENOKOT S TAB PO ×2 (08:00→19:57)
[2018-02-08] MEDS: ASPIRIN 81 MG ENTERIC TAB PO (08:00)
[2018-02-08] MEDS: HEPARIN SOD (PORCINE) 5000 UNITS/ML VIAL SC ×2 (08:00→19:57)
[2018-02-08] MEDS: MIRALAX *UNIT DOSE* 17GM PACKET PO (08:01)
[2018-02-08] MEDS: NS 1,000 ML IV ×3 (10:13→20:00)
[2018-02-08] MEDS ORDERED: MAGNESIUM CITRATE 300 ML BTL PO (10:15)
[2018-02-08 11:38] LABS: TYPE AND SCREEN 1
[2018-02-08] MEDS: ACETAMINOPHEN TAB 650MG DOSE (2X325MG) PO (11:57)
[2018-02-08] MEDS ORDERED: BISACODYL ENEMA 10 MG/30 ML PR (12:00)
[2018-02-08] MEDS ORDERED: HEPARIN SOD (PORCINE) 5000 UNITS/ML VIAL As Ordered (19:47)
[2018-02-09 06:50] LABS: HEMATOCRIT 38.4 % (42.0-52.0); HEMOGLOBIN 13.1 g/dl (14.0-18.0); MEAN CORPUSCULAR HEMOGLOBIN 33.4 pg (27.0-33.0); MEAN CORPUSCULAR HGB CONC 34.1 g/dl (32.0-36.5); PLATELET COUNT, AUTOMATED 245 10^3/uL (150-450); RED BLOOD COUNT 3.92 10^6/uL (4.30-6.10); RED CELL DISTRIBUTION WIDTH 14.6 % (11.5-14.5); WHITE BLOOD COUNT 8.7 10^3/uL (4.0-10.0)
[2018-02-09 06:50] LABS: IONIZED CALCIUM 6.2 MG/DL (4.5-5.3)
[2018-02-09 07:13] LABS: ALBUMIN 2.6 GM/DL (3.2-5.2); ALBUMIN/GLOBULIN RATIO 1.13 (1.00-1.93); ALKALINE PHOSPHATASE 134 U/L (45-117); ALT/SGPT 16 U/L (12-78); ANION GAP 11 MEQ/L (8-16); AST/SGOT 66 U/L (7-37); BILIRUBIN,TOTAL 1.1 MG/DL (0.2-1.0); BLOOD UREA NITROGEN 54 MG/DL (7-18); CALCIUM LEVEL 11.5 MG/DL (8.8-10.2); CARBON DIOXIDE LEVEL 22 MEQ/L (21-32); CHLORIDE LEVEL 107 MEQ/L (98-107); CREATININE FOR GFR 1.81 MG/DL (0.70-1.30); GLOMERULAR FILTRATION RATE 37.8 (>35); GLUCOSE, FASTING 66 MG/DL (70-100); POTASSIUM SERUM 4.7 MEQ/L (3.5-5.1); SODIUM LEVEL 140 MEQ/L (136-145); TOTAL PROTEIN 4.9 GM/DL (6.4-8.2)
[2018-02-09] MEDS: ASPIRIN 81 MG ENTERIC TAB PO (08:31)
[2018-02-09] MEDS: ACETAMINOPHEN TAB 650MG DOSE (2X325MG) PO ×2 (08:31→20:28)
[2018-02-09] MEDS: NS 1,000 ML IV ×2 (08:32→20:29)
[2018-02-09] MEDS: SENOKOT S TAB PO ×2 (08:32→20:28)
[2018-02-09] MEDS: HEPARIN SOD (PORCINE) 5000 UNITS/ML VIAL SC ×2 (08:32→20:29)
[2018-02-09] MEDS ORDERED: MIRALAX *UNIT DOSE* 17GM PACKET PO (09:00)
[2018-02-09 09:26] LABS: PTH INTACT 6.6 PG/ML (18.5-88.0); TOTAL 25(OH) VITAMIN D 13.3 NG/ML (30.0-100.0)
[2018-02-09] MEDS: VITAMIN D 1,000 INTERNATIONAL UNITS TABLET PO (12:28)
[2018-02-09] MEDS: DRONABINOL 2.5 MG CAP (MARINOL) PO ×2 (12:28→17:27)
[2018-02-09] MEDS: ZOLEDRONIC ACID 3 MG in D5W 100 ML IV (22:09)
[2018-02-10 06:49] LABS: HEMATOCRIT 41.3 % (42.0-52.0); HEMOGLOBIN 14.1 g/dl (14.0-18.0); MEAN CORPUSCULAR HEMOGLOBIN 33.2 pg (27.0-33.0); MEAN CORPUSCULAR HGB CONC 34.1 g/dl (32.0-36.5); MEAN CORPUSCULAR VOLUME 97.2 fl (80.0-96.0); PLATELET COUNT, AUTOMATED 322 10^3/uL (150-450); RED BLOOD COUNT 4.25 10^6/uL (4.30-6.10); RED CELL DISTRIBUTION WIDTH 14.6 % (11.5-14.5); WHITE BLOOD COUNT 10.7 10^3/uL (4.0-10.0)
[2018-02-10 07:08] LABS: ALBUMIN 2.4 GM/DL (3.2-5.2); ALBUMIN/GLOBULIN RATIO 0.86 (1.00-1.93); ALKALINE PHOSPHATASE 137 U/L (45-117); ALT/SGPT 19 U/L (12-78); ANION GAP 10 MEQ/L (8-16); AST/SGOT 71 U/L (7-37); BLOOD UREA NITROGEN 58 MG/DL (7-18); CALCIUM LEVEL 11.4 MG/DL (8.8-10.2); CARBON DIOXIDE LEVEL 19 MEQ/L (21-32); CHLORIDE LEVEL 109 MEQ/L (98-107); CREATININE FOR GFR 2.15 MG/DL (0.70-1.30); GLUCOSE, FASTING 104 MG/DL (70-100); POTASSIUM SERUM 4.8 MEQ/L (3.5-5.1); SODIUM LEVEL 138 MEQ/L (136-145); TOTAL PROTEIN 5.2 GM/DL (6.4-8.2)
[2018-02-10] MEDS: NS 1,000 ML IV ×2 (09:11→20:30)
[2018-02-10] MEDS: ONDANSETRON 4MG/2ML VIAL (J2405) IV (09:11)
[2018-02-10] MEDS ORDERED: ATROPINE SULFATE 1% OP SOLN 2 ML BTL SL ×2 (09:15→11:00)
[2018-02-10] MEDS: MORPHINE 4 MG/ML 1ML VIAL (J2270) IV (09:38)
[2018-02-10] MEDS ORDERED: MORPHINE 10MG/0.5ML ORAL CONCENTRATE SOLUTION U/D SL ×2 (11:00→11:45)
[2018-02-10] MEDS ORDERED: PILL CUTTER/CRUSHER XX (11:15)
[2018-02-10] MEDS: MORPHINE 10MG/0.5ML ORAL CONCENTRATE SOLUTION U/D SL (11:49)
[2018-02-10] MEDS: LORazepam 1 MG TAB PO (16:05)
[2018-02-11] MEDS: MORPHINE 10MG/0.5ML ORAL CONCENTRATE SOLUTION U/D SL ×2 (04:57→08:11)
[2018-02-11] MEDS: LORazepam 1 MG TAB PO (08:52)
[2018-02-11] MEDS: SCOPOLAMINE 1MG TRANSDERMAL PATCH TOP (08:58)
[2018-02-11] MEDS: ONDANSETRON 4MG/2ML VIAL (J2405) IV (08:58)
[2018-02-11] MEDS: MORPHINE 4 MG/ML 1ML VIAL (J2270) IV (09:44)
[2018-02-11] MEDS ORDERED: MORPHINE 4 MG/ML 1ML VIAL (J2270) IV (09:45)
[2018-02-13 14:15] LABS: VITAMIN D 1,25 DIHYDROXY 85.5 pg/mL (19.9-79.3)
[2018-02-13 14:15] LABS: PTH RELATED PEPTIDE < 1.1 pmol/L (.)
== END 2018-02-11 11:30 | disposition expired | DRG 840 ==
LOC: M ED 16:08 → M ED INP 20:02 → M MS5PR 22:51
PROC: 0W9G3ZZ Drainage of Peritoneal Cavity, Percutaneous Approach (ICD-10-PCS; principal; 2018-02-07)
PROC: 30233J1 Transfusion of Nonautologous Serum Albumin into Peripheral Vein, Percutaneous Approach (ICD-10-PCS; 2018-02-08)
DX: C85.13 Unspecified B-cell lymphoma, intra-abdominal lymph nodes (principal); E43 Unspecified severe protein-calorie malnutrition; R18.0 Malignant ascites; J98.11 Atelectasis; J90 Pleural effusion, not elsewhere classified; Z68.1 Body mass index [BMI] 19.9 or less, adult; R64 Cachexia; Z66 Do not resuscitate; Z51.5 Encounter for palliative care; N28.9 Disorder of kidney and ureter, unspecified; E83.52 Hypercalcemia; F17.200 Nicotine dependence, unspecified, uncomplicated; Z79.82 Long term (current) use of aspirin; Z92.21 Personal history of antineoplastic chemotherapy; Z95.9 Presence of cardiac and vascular implant and graft, unspecified

== ENCOUNTER → 2018-02-06 | Outpatient (CLI) | payer MEDICARE, BC ==
[~2018-02-06] MED LIST changes: -ALLO15TA PO; -ASPI1TAB PO; -COLA100C5 PO; +GASTROGRAFIN SOLUTION 30ML (Q9963) As Ordered; -PANT40TA2 PO; -PEG1POW PO; -VITA-122 PO
== END ==
LOC: M RAD 09:04
DX: R18.8 Other ascites (principal); J98.11 Atelectasis; J91.8 Pleural effusion in other conditions classified elsewhere